=== PATIENT | female | born 1945 | race Caucasian/White ===

== ENCOUNTER → 2016-06-15 | Outpatient (CLI) | payer MEDICARE, OTHER ==
[2016-06-15 08:45] LABS: CHOLESTEROL 224.35 mg/dL (0-200); Direct HDL 89 mg/dL (>40); TRIGLYCERIDES 124 mg/dL (<150)
[2016-06-15 08:56] LABS: DIRECT LDL 110 mg/dL (<100)
== END ==
LOC: OD 07:30
PROVIDERS: ATTEND Internal Medicine
DX: E78.5 Hyperlipidemia, unspecified (principal); E55.9 Vitamin D deficiency, unspecified; E03.9 Hypothyroidism, unspecified
CPT/HCPCS: 36415; 80061; 82306; 84443

== ENCOUNTER 2016-07-05 06:59 | Day surgery (SDC) | payer MEDICARE, OTHER ==
[2016-07-05] MEDS ORDERED: MIDAZOLAM 2 MG/2 ML INJ ONE (07:22)
[2016-07-05] MEDS ORDERED: NALOXONE HCL INJ/PF 0.4 MG/1 ML SDV ONE (07:22)
[2016-07-05] MEDS ORDERED: PROMETHAZINE HCL INJ 25 MG/1 ML VIAL ONE (07:22)
[2016-07-05] MEDS ORDERED: ONDANSETRON HCL INJ/PF 4 MG/2 ML SDV ONE (07:22)
[2016-07-05] MEDS ORDERED: GLYCOPYRROLATE INJ 0.4 MG/2 ML VIAL ONE (07:22)
[2016-07-05] MEDS ORDERED: EPINEPHRINE INJ 1 MG/10 ML DISP.SYRIN ONE (07:23)
[2016-07-05] MEDS ORDERED: FENTANYL CITRATE INJ/PF 100 MCG/2 ML AMPUL ONE (07:23)
[2016-07-05] MEDS ORDERED: GLUCAGON,HUMAN RECOMB 1 MG INJ ONE (07:23)
[2016-07-05] MEDS ORDERED: FLUMAZENIL INJ 0.5 MG/5 ML VIAL IV ONE (07:23)
[2016-07-05] MEDS: MIDAZOLAM 2 MG/2 ML INJ ONE ×2 (07:42→07:52)
--- NOTE | 2016-07-05 08:19 | Operative Report ---
Operative Report DATE OF SURGERY: 07/05/16 PREOPERATIVE DIAGNOSIS: 1. External hemorrhoids. 2. Difficulty evacuating stool POSTOPERATIVE DIAGNOSIS: Same with 2 polyps one in transverse colon, one in descending colon OPERATION: Total colonoscopy to cecum. Polypectomy at 65 and 55 cm from anal verge SURGEON: PAULA POWER ANESTHESIA: Moderate Sedation TISSUE REMOVED OR ALTERED: 2 polyps COMPLICATIONS: none ESTIMATED BLOOD LOSS: none INTRAOPERATIVE FINDINGS: See below PROCEDURE: Obtaining informed consent the patient was taken from the preoperative holding area to the main endoscopy suite where monitoring devices were attached to the patient. Plan and surgical timeout were conducted The patient was placed in the left lateral decubitus position with knees to chest. A perianal examination was performed. There there were collapsed external hemorrhoids. Internally no hemorrhoids identified. Sphincter tone was felt to be normal. I did not Did not detect any significant prolapse, perineal descent etc. over the exam was limited due to the patient's level of sedation and her inability to The flexible adult colonoscope was advanced through the anal rectal canal, all the way to the cecum. Utilization of the cecum was achieved and the ileocecal valve, the appendiceal orifice and transillumination of the anterior abdominal wall. This was an excellent study on the well-prepped bowel. The colonoscope was withdrawn slowly and methodically checked and the mucosa carefully. There was no evidence of tumor, stricture, bleeding. 2 small polyps, likely less than 3 mm were identified 1 in the transverse colon approximately 70 cm from the anal verge and a second at 55 cm from anal verge. Both polyps were removed using the cold forceps device. The polyps removed in a piecemeal fashion. Bleeding was negligible. In the sigmoid colon one diverticulum was identified. The scope was slowly withdrawn through the anal rectal canal. Complete visualization of the rectum was achieved with photodocumentation. The scope was withdrawn to the patient's anus. The patient tolerated the procedure well and was taken to the recovery area in stable condition. Per surveillance guidelines, she'll be an appropriate candidate for follow colonoscopy in 3 years, or sooner if symptoms develop.
--- NOTE | 2016-07-05 08:20 | PDOC DISCHARGE SUMMARY ---
Discharge Summary (SDC) - Discharge Final Diagnosis: 1. External hemorrhoids 2. Difficulty evacuating stool 3. Colonic polyps Date of Surgery: 07/05/16 Discharge Date: 07/05/16 Condition: Good Treatment or Instructions: [facility] [address] [address] POST ENDOSCOPY DISCHARGE INSTRUCTIONS 1. Diet: Start clear liquids that a regular diet as tolerated. 2. Resume all preoperative medications. All oral anticoagulations and aspirins can be resumed 24 hours after procedure. 3. If a polypectomy was performed some bleeding per rectum may occur. This should stop within 3 days. If not, please contact the office. 4. If you had a colonoscopy you may experience some bloating and delayed return of normal bowel function for several days, your regular bowel movement pattern should resume within a week. 5. Please contact [facility] at to make an appointment with Dr Bertrand for 1 to 3 weeks following procedure. 6. If you have any questions or concerns regarding your care,treatment plan or follow up, please contact our office. 7. Per clinical guidelines we recommend you undergo a repeat colonscopy in 3 years. Discharge Diet: As Tolerated Discharge Activity: Activity As Tolerated Home Care Assistance: None Needed Report the Following to Your Physician Immediately: Shortness of Breath, Increase in Pain, Fever over 101 Degrees - Patient to follow up with Dr. Bertrand also surgical clinic in 2 weeks, resume preoperative medications diet and activity.
[2016-07-05 09:17] VITALS: BP 143/84
== END 2016-07-05 09:15 | disposition home or self-care (01) ==
LOC: END 06:59
PROVIDERS: ATTEND Surgery
PROC: 0DBE8ZX Excision of Large Intestine, Via Natural or Artificial Opening Endoscopic, Diagnostic (ICD-10-PCS; 2016-07-05)
PROC: 0DBL8ZX Excision of Transverse Colon, Via Natural or Artificial Opening Endoscopic, Diagnostic (ICD-10-PCS; principal; 2016-07-05 08:15)
DX: D12.4 Benign neoplasm of descending colon (principal); D12.3 Benign neoplasm of transverse colon; K57.30 Diverticulosis of large intestine without perforation or abscess without bleeding; K64.8 Other hemorrhoids; Z80.0 Family history of malignant neoplasm of digestive organs; J45.909 Unspecified asthma, uncomplicated; G43.909 Migraine, unspecified, not intractable, without status migrainosus; F32.9 Major depressive disorder, single episode, unspecified; E03.9 Hypothyroidism, unspecified; Z79.899 Other long term (current) drug therapy; Z79.51 Long term (current) use of inhaled steroids; E66.9 Obesity, unspecified; Z68.42 Body mass index [BMI] 45.0-49.9, adult
CPT/HCPCS: 45380; 88305 ×2; J2250; J3010; J0171; J1610; J2310; J2405; J2550; J3490

== ENCOUNTER → 2016-09-25 | Outpatient (CLI) | payer MEDICARE, OTHER | LOC: WI 08:27 | PROVIDERS: ATTEND Family Medicine Geriatric Medicine | DX: Z12.31 Encounter for screening mammogram for malignant neoplasm of breast (principal) | CPT/HCPCS: 77067; G0202 ==

== ENCOUNTER → 2016-11-27 | Outpatient (CLI) | payer MEDICARE, OTHER ==
[2016-11-27 08:15] LABS: ABSOLUTE EOSINOPHILS # (AUTO) 0.1 10^3/uL (0.0-0.6); ABSOLUTE LYMPHOCYTES (AUTO) 1.1 10^3/uL (0.5-4.7); ABSOLUTE MONOCYTES (AUTO) 0.4 10^3/uL (0.1-1.4); ABSOLUTE NEUT (AUTO) 3.1 10^3/uL (1.7-8.2); BASOPHILS % (AUTO) 0.9 % (0-2); EOSINOPHILS % (AUTO) 2.4 % (0-6); HEMATOCRIT 35.5 % (36.0-47.0); HEMOGLOBIN 11.4 g/dL (12.0-15.5); HGB HCT DIFFERENCE -1.3; LYMPHOCYTES % (AUTO) 23.5 % (13-45); MEAN CORPUSCULAR HEMOGLOBIN 29.9 pg (27.0-33.4); MEAN CORPUSCULAR HGB CONC 32.2 g/dL (32.0-36.0); MEAN CORPUSCULAR VOLUME 93 fl (80-97); MONOCYTES % (AUTO) 9.3 % (3-13); RED BLOOD COUNT 3.83 10^6/uL (3.72-5.28); RED CELL DISTRIBUTION WIDTH 14.9 % (11.5-14.0); SEGMENTED NEUTROPHILS % (AUTO) 63.9 % (42-78); WHITE BLOOD COUNT 4.8 10^3/uL (4.0-10.5)
[2016-11-27 08:40] LABS: ALANINE AMINOTRANSFERASE 24 U/L (9-52); ALBUMIN 3.7 g/dL (3.5-5.0); ALKALINE PHOSPHATASE 98 U/L (38-126); ANION GAP 10 (5-19); ASPARTATE AMINO TRANSFERASE 19 U/L (14-36); BILIRUBIN,DIRECT 0.3 mg/dL (0.0-0.4); BILIRUBIN,TOTAL 0.3 mg/dL (0.2-1.3); BLOOD UREA NITROGEN 18 mg/dL (7-20); CALCIUM 9.3 mg/dL (8.4-10.2); CARBON DIOXIDE 24 mmol/L (22-30); CHLORIDE 109 mmol/L (98-107); CHOLESTEROL 254.98 mg/dL (0-200); CREATININE RESULT 1.01 mg/dL (0.52-1.25); Direct HDL 78 mg/dL (>40); GLUCOSE 99 mg/dL (75-110); POTASSIUM 4.2 mmol/L (3.6-5.0); SODIUM 143.3 mmol/L (137-145); TOTAL PROTEIN 6.8 g/dL (6.3-8.2); TRIGLYCERIDES 128 mg/dL (<150)
[2016-11-27 08:51] LABS: DIRECT LDL 135 mg/dL (<100)
== END ==
LOC: OD 07:02
PROVIDERS: ATTEND Psychiatry & Neurology Psychiatry
DX: F33.0 Major depressive disorder, recurrent, mild (principal)
CPT/HCPCS: 36415; 80053; 80061; 84443; 85025

== ENCOUNTER → 2017-01-17 | Outpatient (CLI) | payer MEDICARE, OTHER ==
[2017-01-17 08:13] LABS: ABSOLUTE EOSINOPHILS # (AUTO) 0.2 10^3/uL (0.0-0.6); ABSOLUTE LYMPHOCYTES (AUTO) 1.5 10^3/uL (0.5-4.7); ABSOLUTE MONOCYTES (AUTO) 0.6 10^3/uL (0.1-1.4); ABSOLUTE NEUT (AUTO) 4.1 10^3/uL (1.7-8.2); BASOPHILS % (AUTO) 0.7 % (0-2); EOSINOPHILS % (AUTO) 2.8 % (0-6); HEMATOCRIT 34.8 % (36.0-47.0); HEMOGLOBIN 11.5 g/dL (12.0-15.5); HGB HCT DIFFERENCE -0.3; LYMPHOCYTES % (AUTO) 22.9 % (13-45); MEAN CORPUSCULAR HEMOGLOBIN 30.9 pg (27.0-33.4); MEAN CORPUSCULAR HGB CONC 33.1 g/dL (32.0-36.0); MEAN CORPUSCULAR VOLUME 93 fl (80-97); MONOCYTES % (AUTO) 8.8 % (3-13); RED BLOOD COUNT 3.73 10^6/uL (3.72-5.28); RED CELL DISTRIBUTION WIDTH 14.7 % (11.5-14.0); SEGMENTED NEUTROPHILS % (AUTO) 64.8 % (42-78); WHITE BLOOD COUNT 6.4 10^3/uL (4.0-10.5)
[2017-01-17 08:39] LABS: ALANINE AMINOTRANSFERASE 24 U/L (9-52); ALBUMIN 3.9 g/dL (3.5-5.0); ALKALINE PHOSPHATASE 101 U/L (38-126); ANION GAP 10 (5-19); ASPARTATE AMINO TRANSFERASE 18 U/L (14-36); BILIRUBIN,DIRECT 0.4 mg/dL (0.0-0.4); BILIRUBIN,TOTAL 0.4 mg/dL (0.2-1.3); BLOOD UREA NITROGEN 18 mg/dL (7-20); CALCIUM 9.5 mg/dL (8.4-10.2); CARBON DIOXIDE 25 mmol/L (22-30); CHLORIDE 110 mmol/L (98-107); CHOLESTEROL 255.45 mg/dL (0-200); CREATININE RESULT 0.99 mg/dL (0.52-1.25); Direct HDL 86 mg/dL (>40); GLUCOSE 98 mg/dL (75-110); POTASSIUM 4.2 mmol/L (3.6-5.0); SODIUM 144.6 mmol/L (137-145); TOTAL PROTEIN 6.9 g/dL (6.3-8.2); TRIGLYCERIDES 108 mg/dL (<150)
[2017-01-17 08:51] LABS: DIRECT LDL 137 mg/dL (<100)
== END ==
LOC: OD 07:06
PROVIDERS: ATTEND Family Medicine Geriatric Medicine
DX: E78.5 Hyperlipidemia, unspecified (principal); E03.9 Hypothyroidism, unspecified; Z79.899 Other long term (current) drug therapy
CPT/HCPCS: 36415; 80053; 80061; 84443; 85025

== ENCOUNTER → 2017-04-19 | Outpatient (CLI) | payer MEDICARE, OTHER ==
[2017-04-19 08:55] LABS: ANION GAP 14 (5-19); BLOOD UREA NITROGEN 14 mg/dL (7-20); CALCIUM 9.2 mg/dL (8.4-10.2); CARBON DIOXIDE 23 mmol/L (22-30); CHLORIDE 109 mmol/L (98-107); CREATININE RESULT 1.02 mg/dL (0.52-1.25); GLUCOSE 83 mg/dL (75-110); POTASSIUM 4.1 mmol/L (3.6-5.0); SODIUM 145.7 mmol/L (137-145)
== END ==
LOC: OD 07:25
PROVIDERS: ATTEND Family Medicine Geriatric Medicine
DX: D64.9 Anemia, unspecified (principal); N18.3 Chronic kidney disease, stage 3 (moderate); Z79.899 Other long term (current) drug therapy
CPT/HCPCS: 36415; 80048; 82728; 83540; 83550; 84466; 85045

== ENCOUNTER → 2017-08-16 | Outpatient (CLI) | payer MEDICARE, OTHER ==
[2017-08-16 08:04] LABS: ABSOLUTE EOSINOPHILS # (AUTO) 0.2 10^3/uL (0.0-0.6); ABSOLUTE LYMPHOCYTES (AUTO) 1.5 10^3/uL (0.5-4.7); ABSOLUTE MONOCYTES (AUTO) 0.6 10^3/uL (0.1-1.4); BASOPHILS % (AUTO) 0.7 % (0-2); EOSINOPHILS % (AUTO) 3.3 % (0-6); HEMATOCRIT 34.1 % (36.0-47.0); HEMOGLOBIN 11.3 g/dL (12.0-15.5); LYMPHOCYTES % (AUTO) 23.3 % (13-45); MEAN CORPUSCULAR HEMOGLOBIN 30.8 pg (27.0-33.4); MEAN CORPUSCULAR VOLUME 94 fl (80-97); MONOCYTES % (AUTO) 9.6 % (3-13); PLATELET COUNT 223 10^3/uL (150-450); RED BLOOD COUNT 3.65 10^6/uL (3.72-5.28); RED CELL DISTRIBUTION WIDTH 13.8 % (11.5-14.0); SEGMENTED NEUTROPHILS % (AUTO) 63.1 % (42-78); TOTAL CELLS COUNTED % (AUTO) 100 %; WHITE BLOOD COUNT 6.4 10^3/uL (4.0-10.5)
[2017-08-16 08:21] LABS: ALANINE AMINOTRANSFERASE 29 U/L (9-52); ALBUMIN 3.9 g/dL (3.5-5.0); ALKALINE PHOSPHATASE 73 U/L (38-126); ASPARTATE AMINO TRANSFERASE 16 U/L (14-36); BILIRUBIN,DIRECT 0.2 mg/dL (0.0-0.4); BILIRUBIN,TOTAL 0.2 mg/dL (0.2-1.3); CHOLESTEROL 180.75 mg/dL (0-200); TRIGLYCERIDES 71 mg/dL (<150)
[2017-08-16 08:32] LABS: DIRECT LDL 71 mg/dL (<100)
== END ==
LOC: OD 07:17
PROVIDERS: ATTEND Family Medicine Geriatric Medicine
DX: I10 Essential (primary) hypertension (principal); E78.5 Hyperlipidemia, unspecified; D64.9 Anemia, unspecified; E03.9 Hypothyroidism, unspecified; Z79.899 Other long term (current) drug therapy
CPT/HCPCS: 36415; 80061; 80076; 84443; 85025

== ENCOUNTER 2017-08-23 18:17 | Emergency (ER) | payer MEDICARE, OTHER ==
[2017-08-23] MEDS ORDERED: PROCHLORPERAZINE EDISYLATE INJ 10 MG/2 ML VIAL IM ONE (19:20)
[2017-08-23] MEDS ORDERED: DIPHENHYDRAMINE HCL 50 MG/ML VIAL IV ONE (19:20)
--- NOTE | 2017-08-23 19:25 | ER Document Report ---
HPI - HPI Pain Level: 4 Notes: Patient is a 72-year-old female with a history of mental health disorder, migraine, COPD, hypercholesterolemia, thyroid issues who presents to the ED complaining of left temporal headache that has been constant over the last 3 days. Patient states that this is not a typical migraine pain for her. She does take tramadol and Imitrex which usually helps with her headaches, but this time it has not. She states that the pain does not radiate. She has not had any jaw claudication. She is eating and drinking otherwise without difficulties. She is urinating normally having normal bowel movements. Patient states that she does have seasonal allergies, but has not had any sinus pressure or postnasal drip. Patient denies any smoking or IV drug use. Patient does have a neurologist Dr. Monet who she sees for her migraines. No other concerns or complaints at this time. Denies any fever, head injury, neck pain, changes in vision/speech/mentation/hearing, URI, sore throat, chest pain, palpitations, syncope, cough, shortness of breath, wheeze, dyspnea, abdominal pain, nausea/vomiting/diarrhea, urinary retention, dysuria, hematuria , loss of control of bowel or bladder, numbness/tingling, saddle anesthesia, muscle paralysis/weakness, or rash. - ROS Systems Reviewed and Negative: Yes All other systems reviewed and negative Past Medical History - Social History Smoking Status: Never Smoker Family History: Reviewed & Not Pertinent - Past Medical History Cardiac Medical History: Reports: Hx Coronary Artery Disease, Hx Hypercholesterolemia Denies: Hx Heart Attack, Hx Hypertension Pulmonary Medical History: Reports: Hx Asthma, Hx COPD Denies: Hx Bronchitis, Hx Pneumonia Neurological Medical History: Denies: Hx Cerebrovascular Accident, Hx Seizures GI Medical History: Denies: Hx Hepatitis, Hx Hiatal Hernia, Hx Ulcer Musculoskeltal Medical History: Reports Hx Arthritis - B/L KNEES? Infectious Medical History: Denies: Hx Hepatitis Past Surgical History: Reports: Hx Abdominal Surgery - Gallbladder Removed, Hx Gynecologic Surgery - 2 C-sections, Hx Hysterectomy, Hx Oral Surgery - tonsilectomy. Denies: Hx Mastectomy, Hx Open Heart Surgery, Hx Pacemaker - Immunizations Hx Diphtheria, Pertussis, Tetanus Vaccination: Yes Hx Pneumococcal Vaccination: 03/03/16 Vertical Provider Document - CONSTITUTIONAL Agree With Documented VS: Yes Notes: PHYSICAL EXAMINATION: GENERAL: Well-appearing, well-nourished and in no acute distress. A&Ox4. Answers questions appropriately. HEAD: Atraumatic, normocephalic. Non-tender. EYES: Pupils equal round and reactive to light, extraocular movements intact, sclera anicteric, conjunctiva are normal. vis hardwick intact ENT: EAC clear b/l. TM's intact b/l without erythema, fluid, or perforation. Nares patent and without discharge. oropharynx clear without exudates. No tonsilar hypertrophy or erythema. Moist mucous membranes. No sinus tenderness. Palp of the temporal artery with 1+ pulse b/l, non-tender. NECK: Normal range of motion, supple without lymphadenopathy. No rigidity. No midline tenderness. Spurling negative. LUNGS: Breath sounds clear to auscultation bilaterally and equal. No wheezes rales or rhonchi. HEART: Regular rate and rhythm without murmurs, rubs, gallops. Musculoskeletal: Ext b/l: FROM to passive/active. Strength 5+/5. No deficits noted. No bony tenderness of extremities. Extremities: No cyanosis, clubbing, or edema b/l. Peripheral pulses 2+. Capillary refill less than 2 seconds. NEUROLOGICAL: NIH 0. GCS 15. cranial nerves grossly intact. Normal speech, normal gait. Normal sensory, motor exams. Reflexes 2+ b/l. BINA's negative. Pronator drift negative. PSYCH: Normal mood, normal affect. SKIN: Warm, Dry, normal turgor, no rashes or lesions noted. - INFECTION CONTROL TRAVEL OUTSIDE OF THE [place] IN LAST 30 DAYS: No Course - Re-evaluation Re-evalutation: 08/23/17 19:[address] Howell. We will obtain a head CT and give compazine/benadryl. We will give toradol with neg CT. 08/23/17 20:45 Patient is an afebrile, well-hydrated, 72-year-old female who presents to the ED with a left temporal headache, suspect benign at this time. Vitals are acceptable. PE is otherwise unremarkable for any focal neurological deficits. CT scan of the head was unremarkable for any acute pathology. NIH 0, GCS 15, cranial nerves grossly intact. No other labs or imaging warranted at this time based on H&P. Patient was given Benadryl, Compazine, and Toradol (toradol once CT neg) for her headache which resolved her symptoms. Low suspicion for any acute glaucoma, temporal arteritis, meningitis, intracranial hemorrhage, ischemic stroke, or fracture at this time. Patient is aware that her condition can change from initial presentation and that she needs to monitor symptoms closely for any acute changes. Conservative measures for symptoms. Continue at home medications as needed/directed. Recheck with your PCM/neurologist next week. Return to the ED with any worsening/concerning symptoms otherwise as reviewed discharge. Patient is in agreement. - Vital Signs Vital signs: Temp Pulse Resp BP Pulse Ox 98.3 F 78 20 151/92 H 98 08/23/17 18:51 08/23/17 18:51 08/23/17 18:51 08/23/17 18:51 08/23/17 18:51 Discharge - Discharge Clinical Impression: Headache Qualifiers: Headache type: unspecified Headache chronicity pattern: acute headache Intractability: not intractable Qualified Code(s): R51 - Headache Condition: Stable Disposition: HOME, SELF-CARE Instructions: Headache ([facility]) Additional Instructions: Rest, cool compress Tylenol/ibuprofen as needed Light stretches daily Strength exercises as able Moist heat and massage may help F/u with your PCP in 3-5 days for a recheck Consider consult(s) with Neurology for ongoing/worsening symptoms Return to the ED with any worsening symptoms and/or development of fever, worsening headache, changes in behavior/mentation/speech/vision, chest pain, palpitations, syncope, shortness of breath, trouble breathing, abdominal pain, n /v/d, blood in stool/urine, loss of control of bowel/bladder, urinary retention , muscle weakness/paralysis, saddle anesthesia, numbness/tingling, or other worsening symptoms that are concerning to you. Referrals: JULIA MILLIGAN MD [Primary Care Provider] - Follow up in 3-5 days KRISTEN MONET MD [EMERITUS] - Follow up as needed
[2017-08-23] MEDS ORDERED: PROCHLORPERAZINE EDISYLATE INJ 10 MG/2 ML VIAL IV ONE (19:32)
--- NOTE | 2017-08-23 19:48 | RADIOLOGY REPORT (SQ) ---
EXAM DESCRIPTION: CT HEAD WITHOUT COMPLETED DATE/TIME: 08/23/2017 7:37 pm REASON FOR STUDY: left temporal BURKS COMPARISON: MRI from 04/21/2010 TECHNIQUE: Axial images acquired through the brain without intravenous contrast. Images reviewed wi th bone, brain and subdural windows. Images stored on PACS. All CT scanners at this facility use dose modulation, iterative reconstruction, and/or weight based d osing when appropriate to reduce radiation dose to as low as reasonably achievable (ALARA). [facility]: Dose Right [facility]: CareDose [facility]: Dose Right [facility]: Teradose 4D [facility]: Smart Imaxio RADIATION DOSE: CT Rad equipment meets quality standard of care and radiation dose reduction techniq ues were employed. CTDIvol: 64.6 mGy. DLP: 1163 mGy-cm. mGy. LIMITATIONS: None. FINDINGS: VENTRICLES: Prominent. CEREBRUM: No masses. No hemorrhage. No midline shift. Areas of low density in the white matter mos t likely due to chronic micro-vascular ischemic change. No evidence for acute infarction. CEREBELLUM: No masses. No hemorrhage. No alteration of density. No evidence for acute infarction. EXTRAAXIAL SPACES: Mild age-related involutional change. No fluid collections. No masses. ORBITS AND GLOBE: No intra- or extraconal masses. Normal contour of globe without masses. CALVARIUM: No fracture. PARANASAL SINUSES: No fluid or mucosal thickening. SOFT TISSUES: No mass or hematoma. OTHER: No other significant finding. IMPRESSION: MILD CHRONIC CHANGES OF ATROPHY AND MICROVASCULAR ISCHEMIA. NO ACUTE PROCESS. EVIDENCE OF ACUTE STROKE: NO. TECHNICAL DOCUMENTATION: JOB ID: [id number] Quality ID # [id number]: Final reports with documentation of one or more dose reduction techniques (e.g., Au tomated exposure control, adjustment of the mA and/or kV according to patient size, use of iterative reconstruction technique) 2010 [employer]- All Rights Reserved Reading location - IP/workstation name: [email or web address]
[2017-08-23] MEDS ORDERED: KETOROLAC TROMETHAMINE INJ/PF 30 MG/1 ML SDV IV ONE (19:59)
[2017-08-23 21:02] VITALS: BP 114/63
== END 2017-08-23 21:02 | disposition home or self-care (01) ==
LOC: ER 18:17
DX: R51 Headache (principal); J44.9 Chronic obstructive pulmonary disease, unspecified; E78.00 Pure hypercholesterolemia, unspecified; I25.10 Atherosclerotic heart disease of native coronary artery without angina pectoris; Z90.710 Acquired absence of both cervix and uterus
CPT/HCPCS: 99284; 96374; 96375; 70450; J1200; J1885; J0780

== ENCOUNTER → 2017-09-26 | Outpatient (CLI) | payer MEDICARE, OTHER ==
--- NOTE | 2017-09-26 08:53 | WOMENS IMAGING REPORT ---
EXAM DESCRIPTION: BILAT SCREENING MAMMO W/CAD COMPLETED DATE/TIME: 09/26/2017 8:16 am REASON FOR STUDY: SCREENING MAMMO Z12.31 ENCNTR SCREEN MAMMOGRAM FOR MALIGNANT NEOPLASM OF EVELNY COMPARISON: 09/25/2016 and 08/24/2015. TECHNIQUE: Standard craniocaudal and mediolateral oblique views of each breast recorded using RV IDa l acquisition. LIMITATIONS: None. FINDINGS: No masses, calcifications or architectural distortion. No areas of suspicion. Read with the assistance of CAD. .[facility] - R2 Cenova Version 1.3 .[facility] Imaging - R2 Cenova Version 1.3 .[facility] Imaging - R2 Cenova Version 2.4 .[facility] - R2 Cenova Version 2.4 .[facility] - R2 Clerical Production Worker Version 9.2 IMPRESSION: NORMAL MAMMOGRAM. BIRADS 1. BREAST DENSITY: a. The breasts are almost entirely fatty. BIRAD: 1 NEGATIVE RECOMMENDATION: ROUTINE SCREENING COMMENT: The patient has been notified of the results by letter per SA requirements. Additional no tification policies are in place for contacting patient with suspicious or incomplete findings. Quality ID #[id number]: The [employer] recommends an annual screening mammogram for women aged 40 years or over. This facility utilizes a reminder system to ensure that all patients receive reminder letters, and/or direct phone calls for appointments. This includes reminders for routine scr eening mammograms, diagnostic mammograms, or other Breast Imaging Interventions when appropriate. Th is patient will be placed in the appropriate reminder system. The [employer] (ACR) has developed recommendations for screening MRI of the breast s in certain patient populations, to be used in conjunction with mammography. Breast MRI surveillanc e may be appropriate for women with more than 20% lifetime risk of developing breast cancer as deter mined by genetic testing, significant family history of the disease, or history of mantle radiation f or Hodgkins Disease. ACR Practice Guidelines 2008. TECHNICAL DOCUMENTATION: FINDING NUMBER: (1) ASSESSMENT: (1) JOB ID: [id number] [employer]- All Rights Reserved Reading location - IP/workstation name: [email or web address]
== END ==
LOC: WI 07:31
PROVIDERS: ATTEND Family Medicine Geriatric Medicine
DX: Z12.31 Encounter for screening mammogram for malignant neoplasm of breast (principal)
CPT/HCPCS: 77067

== ENCOUNTER → 2017-12-12 | Outpatient (CLI) | payer MEDICARE, OTHER ==
[2017-12-12 11:50] LABS: ABSOLUTE EOSINOPHILS # (AUTO) 0.2 10^3/uL (0.0-0.6); ABSOLUTE LYMPHOCYTES (AUTO) 1.5 10^3/uL (0.5-4.7); ABSOLUTE MONOCYTES (AUTO) 0.8 10^3/uL (0.1-1.4); ABSOLUTE NEUT (AUTO) 3.8 10^3/uL (1.7-8.2); BASOPHILS % (AUTO) 0.7 % (0-2); EOSINOPHILS % (AUTO) 3.1 % (0-6); HEMATOCRIT 33.1 % (36.0-47.0); HEMOGLOBIN 11.1 g/dL (12.0-15.5); LYMPHOCYTES % (AUTO) 23.1 % (13-45); MEAN CORPUSCULAR HEMOGLOBIN 30.9 pg (27.0-33.4); MEAN CORPUSCULAR HGB CONC 33.5 g/dL (32.0-36.0); MEAN CORPUSCULAR VOLUME 92 fl (80-97); MONOCYTES % (AUTO) 12.4 % (3-13); PLATELET COUNT 191 10^3/uL (150-450); RED BLOOD COUNT 3.59 10^6/uL (3.72-5.28); RED CELL DISTRIBUTION WIDTH 14.2 % (11.5-14.0); SEGMENTED NEUTROPHILS % (AUTO) 60.7 % (42-78); TOTAL CELLS COUNTED % (AUTO) 100 %; WHITE BLOOD COUNT 6.3 10^3/uL (4.0-10.5)
[2017-12-12 11:53] LABS: ABSOLUTE EOSINOPHILS # (AUTO) 0.2 10^3/uL (0.0-0.6); ABSOLUTE LYMPHOCYTES (AUTO) 1.5 10^3/uL (0.5-4.7); ABSOLUTE MONOCYTES (AUTO) 0.8 10^3/uL (0.1-1.4); ABSOLUTE NEUT (AUTO) 3.8 10^3/uL (1.7-8.2); BASOPHILS % (AUTO) 0.7 % (0-2); EOSINOPHILS % (AUTO) 3.1 % (0-6); HEMATOCRIT 33.1 % (36.0-47.0); HEMOGLOBIN 11.1 g/dL (12.0-15.5); LYMPHOCYTES % (AUTO) 23.1 % (13-45); MEAN CORPUSCULAR HEMOGLOBIN 30.9 pg (27.0-33.4); MEAN CORPUSCULAR HGB CONC 33.5 g/dL (32.0-36.0); MEAN CORPUSCULAR VOLUME 92 fl (80-97); MONOCYTES % (AUTO) 12.4 % (3-13); PLATELET COUNT 191 10^3/uL (150-450); RED BLOOD COUNT 3.59 10^6/uL (3.72-5.28); RED CELL DISTRIBUTION WIDTH 14.2 % (11.5-14.0); SEGMENTED NEUTROPHILS % (AUTO) 60.7 % (42-78); TOTAL CELLS COUNTED % (AUTO) 100 %; WHITE BLOOD COUNT 6.3 10^3/uL (4.0-10.5)
[2017-12-12 12:28] LABS: ALANINE AMINOTRANSFERASE 26 U/L (9-52); ALBUMIN 3.9 g/dL (3.5-5.0); ALKALINE PHOSPHATASE 66 U/L (38-126); ANION GAP 11 (5-19); ASPARTATE AMINO TRANSFERASE 25 U/L (14-36); BILIRUBIN,DIRECT 0.3 mg/dL (0.0-0.4); BILIRUBIN,TOTAL 0.3 mg/dL (0.2-1.3); BLOOD UREA NITROGEN 17 mg/dL (7-20); CARBON DIOXIDE 25 mmol/L (22-30); CHLORIDE 109 mmol/L (98-107); GLUCOSE 76 mg/dL (75-110); POTASSIUM 4.4 mmol/L (3.6-5.0); SODIUM 144.9 mmol/L (137-145); TOTAL PROTEIN 6.6 g/dL (6.3-8.2)
[2017-12-12 12:49] LABS: ANION GAP 11 (5-19); BLOOD UREA NITROGEN 17 mg/dL (7-20); CARBON DIOXIDE 25 mmol/L (22-30); CHLORIDE 109 mmol/L (98-107); GLUCOSE 76 mg/dL (75-110); POTASSIUM 4.4 mmol/L (3.6-5.0); SODIUM 144.9 mmol/L (137-145)
== END ==
LOC: OD 10:26
PROVIDERS: ATTEND Family Medicine Geriatric Medicine
DX: I10 Essential (primary) hypertension (principal); F33.0 Major depressive disorder, recurrent, mild; Z79.899 Other long term (current) drug therapy
CPT/HCPCS: 36415; 80048; 80053; 84443; 85025

== ENCOUNTER → 2018-04-17 | Outpatient (CLI) | payer MEDICARE, OTHER ==
[2018-04-17 11:38] LABS: ABSOLUTE EOSINOPHILS # (AUTO) 0.1 10^3/uL (0.0-0.6); ABSOLUTE LYMPHOCYTES (AUTO) 1.5 10^3/uL (0.5-4.7); ABSOLUTE MONOCYTES (AUTO) 0.6 10^3/uL (0.1-1.4); ABSOLUTE NEUT (AUTO) 3.4 10^3/uL (1.7-8.2); BASOPHILS % (AUTO) 0.8 % (0-2); EOSINOPHILS % (AUTO) 1.5 % (0-6); HEMATOCRIT 34.5 % (36.0-47.0); HEMOGLOBIN 11.6 g/dL (12.0-15.5); MEAN CORPUSCULAR HEMOGLOBIN 31.4 pg (27.0-33.4); MEAN CORPUSCULAR HGB CONC 33.5 g/dL (32.0-36.0); MEAN CORPUSCULAR VOLUME 94 fl (80-97); MONOCYTES % (AUTO) 11.3 % (3-13); PLATELET COUNT 190 10^3/uL (150-450); RED BLOOD COUNT 3.68 10^6/uL (3.72-5.28); SEGMENTED NEUTROPHILS % (AUTO) 60.4 % (42-78); TOTAL CELLS COUNTED % (AUTO) 100 %; WHITE BLOOD COUNT 5.7 10^3/uL (4.0-10.5)
[2018-04-17 11:57] LABS: APPEARANCE,URINE SLIGHTLY-CLOUDY; BILIRUBIN,URINE NEGATIVE (NEGATIVE); COLOR,URINE STRAW; GLUCOSE, URINE NEGATIVE (NEGATIVE); KETONES,URINE NEGATIVE (NEGATIVE); LEUKOCYTE ESTERASE,URINE MODERATE (NEGATIVE); NITRITE,URINE NEGATIVE (NEGATIVE); PROTEIN,URINE NEGATIVE (NEGATIVE); URINE SPECIFIC GRAVITY 1.004; UROBILINOGEN,URINE NEGATIVE mg/dL (<2.0)
[2018-04-17 12:03] LABS: ANION GAP 13 (5-19); BLOOD UREA NITROGEN 18 mg/dL (7-20); CALCIUM 9.3 mg/dL (8.4-10.2); CARBON DIOXIDE 21 mmol/L (22-30); CHLORIDE 109 mmol/L (98-107); GLUCOSE 72 mg/dL (75-110); POTASSIUM 4.4 mmol/L (3.6-5.0); SODIUM 142.5 mmol/L (137-145)
--- NOTE | 2018-04-17 13:43 | RADIOLOGY REPORT (SQ) ---
EXAM DESCRIPTION: CHEST PA/LATERAL COMPLETED DATE/TIME: 04/17/2018 11:17 am REASON FOR STUDY: PRE-OP COMPARISON: 01/26/2016 EXAM PARAMETERS: NUMBER OF VIEWS: two views TECHNIQUE: Digital Frontal and Lateral radiographic views of the chest acquired. RADIATION DOSE: NA LIMITATIONS: none FINDINGS: LUNGS AND PLEURA: No opacities, masses or pneumothorax. No pleural effusion. MEDIASTINUM AND HILAR STRUCTURES: No masses or contour abnormalities. HEART AND VASCULAR STRUCTURES: Heart normal size. No evidence for failure. BONES: No acute findings. HARDWARE: None in the chest. OTHER: No other significant finding. IMPRESSION: NO SIGNIFICANT RADIOGRAPHIC FINDING IN THE CHEST. TECHNICAL DOCUMENTATION: JOB ID: [id number] [employer]- All Rights Reserved Reading location - IP/workstation name: [email or web address]
--- NOTE | 2018-04-18 10:41 | EKG REPORT ---
SEVERITY:- ABNORMAL ECG - SINUS RHYTHM PROBABLE LEFT VENTRICULAR HYPERTROPHY BORDERLINE T ABNORMALITIES, INFERIOR LEADS : Confirmed by: Mat Golden 18-Apr-2018 10:39:08
== END ==
LOC: OD 09:43
PROVIDERS: ATTEND Orthopaedic Surgery
DX: Z01.818 Encounter for other preprocedural examination (principal)
CPT/HCPCS: 36415; 71046; 80048; 81001; 85025; 93005; 93010

== ENCOUNTER → 2018-05-07 | Outpatient (CLI) | payer MEDICARE, OTHER ==
[2018-05-07 08:40] LABS: ABSOLUTE EOSINOPHILS # (AUTO) 0.1 10^3/uL (0.0-0.6); ABSOLUTE LYMPHOCYTES (AUTO) 1.4 10^3/uL (0.5-4.7); ABSOLUTE MONOCYTES (AUTO) 0.5 10^3/uL (0.1-1.4); ABSOLUTE NEUT (AUTO) 2.8 10^3/uL (1.7-8.2); BASOPHILS % (AUTO) 0.7 % (0-2); EOSINOPHILS % (AUTO) 1.9 % (0-6); HEMATOCRIT 34.4 % (36.0-47.0); HEMOGLOBIN 11.6 g/dL (12.0-15.5); LYMPHOCYTES % (AUTO) 28.6 % (13-45); MEAN CORPUSCULAR HEMOGLOBIN 31.5 pg (27.0-33.4); MEAN CORPUSCULAR HGB CONC 33.6 g/dL (32.0-36.0); MEAN CORPUSCULAR VOLUME 94 fl (80-97); MONOCYTES % (AUTO) 9.7 % (3-13); PLATELET COUNT 186 10^3/uL (150-450); RED BLOOD COUNT 3.67 10^6/uL (3.72-5.28); RED CELL DISTRIBUTION WIDTH 13.9 % (11.5-14.0); SEGMENTED NEUTROPHILS % (AUTO) 59.1 % (42-78); TOTAL CELLS COUNTED % (AUTO) 100 %; WHITE BLOOD COUNT 4.8 10^3/uL (4.0-10.5)
[2018-05-07 09:10] LABS: ALANINE AMINOTRANSFERASE 16 U/L (9-52); ANION GAP 10 (5-19); BLOOD UREA NITROGEN 17 mg/dL (7-20); CALCIUM 9.3 mg/dL (8.4-10.2); CARBON DIOXIDE 24 mmol/L (22-30); CHLORIDE 110 mmol/L (98-107); CHOLESTEROL 174.13 mg/dL (0-200); GLUCOSE 85 mg/dL (75-110); POTASSIUM 4.3 mmol/L (3.6-5.0); TRIGLYCERIDES 94 mg/dL (<150); URIC ACID 5.4 mg/dL (2.5-7.5)
[2018-05-07 09:22] LABS: DIRECT LDL 74 mg/dL (<100)
== END ==
LOC: OD 07:59
PROVIDERS: ATTEND Family Medicine Geriatric Medicine
DX: M17.0 Bilateral primary osteoarthritis of knee (principal); E03.9 Hypothyroidism, unspecified; N18.3 Chronic kidney disease, stage 3 (moderate); M25.569 Pain in unspecified knee
CPT/HCPCS: 36415; 80048; 80061; 82306; 84443; 84460; 84550; 85025

== ENCOUNTER → 2018-05-07 | Outpatient (CLI) | payer MEDICARE, OTHER ==
[~2018-05-07] MED LIST: REGADENOSON INJ 0.4 MG/5 ML DISP.SYRIN IV ONE
--- NOTE | 2018-05-08 21:01 | DRAGON STRESS TEST REPORT ---
Intravenous Lexiscan Cardiolite stress test using single photon emmision computerized tomography. Date of procedure: 05/07/2018.Ordering Provider: Dr. Fang Amin. Patient's status: Out Patient. Indication: Abnormal EKG for preoperative risk assessment.. Coronary risk factors: Age, and dyslipidemia Resting EKG: Sinus Rhythm. Diffuse nonspecific ST-T changes. Stress EKG: No changes of ischemia. The patient had no chest pain or discomfort, and there were no arrhythmias seen. Reason for termination: Protocol. Conclusions: Normal EKG and hemodynamic response to IV Lexiscan. Nuclear data: At rest the patient was given 14.89 millicuries of technetium 99m sestamibi injected intravenously. As per protocol rest non gated SPECT images were obtained. Subsequently the patient was given intravenous Lexiscan at a dose of 0.4 mg in 5 mL intravenously, followed by flush with normal saline. Subsequently the stress dose of 46.1 millicuries of technetium 99m sestamibi was injected intravenously. As per protocol stress gated images were obtained. Nuclear interpretation: Review of images showed that all segments of the myocardium had normal perfusion at rest, and normal perfusion post stress with IV Lexiscan. All segments of the myocardium had normal motion, contraction, and thickening by gated study. T. I D. ratio was normal at 0.97. There is no transient ischemic calcification of the left ventricle. Computer read rest, and stress left ventricular ejection fraction were 61 %, and 63 %, respectively. Conclusion: 1. There is no scintigraphic evidence of Lexiscan induced myocardial ischemia. 2. There is no scintigraphic evidence of myocardial infarction/scar. Recommendations: Aggressive risk factor modification, and treating the underlying co- morbidities. MTDD
== END ==
LOC: RAD 08:18
PROVIDERS: ATTEND Specialist
DX: R94.31 Abnormal electrocardiogram [ECG] [EKG] (principal); R78.5 Finding of other psychotropic drug in blood
CPT/HCPCS: 93017; 78452; A9500; J2785; Q9969

== ENCOUNTER → 2018-05-08 | Outpatient (CLI) | payer MEDICARE, OTHER ==
--- NOTE | 2018-05-08 20:31 | XCELERA REPORT ---
[address] [address] Transthoracic Echocardiogram Report Name: NILSA MCDUFFIE Age: 72 yrs Gender: Female : 1945 Patient Status: Outpatient Patient Location: Study Date: 05/08/2018 11:05 AM Procedure: A two-dimensional transthoracic echocardiogram with color flow and Doppler was performed. Study Quality: Technically suboptimal. Reason For Study: ABN EKG History: ABNORMAL EKG. Ordering Physician: FANG EL Performed By: Marge Ojeda Interpretation Summary The left ventricle is normal in size. There is normal left ventricular wall thickness. LV EF is > than 65% Left ventricular systolic function is normal. Doppler measurements suggest impaired left ventricular relaxation, which is associated with grade I/IV or mild diastolic dysfunction No defenite focal or regional wall motion abnormality. There is no thrombus. The right ventricle is not well visualized secondary to technical limitations Right atrium not well visualized secondary to technical limitations The left atrial size is normal. There is no evidence of mitral valve prolapse. There is no vegetation seen on the mitral valve. There is no mitral valve stenosis. There is no mitral regurgitation noted. There is no aortic valvular vegetation. There is no aortic valve stenosis There is no LVOT obstruction. No aortic regurgitation is present. There is no tricuspid stenosis. No tricuspid regurgitation. Unable to calculate RVSP due lack of TR jet. There is no pulmonic valvular stenosis. There is no pulmonic valvular regurgitation. The aortic root is normal size. There is no pericardial effusion. MMode/2D Measurements & Calculations RVDd: 2.8 cm LVIDd: 5.3 cm FS: 39.3 % Ao root diam: 3.0 cm IVSd: 0.96 cm LVIDs: 3.2 cm EDV(Teich): 133.2 ml Ao root area: 7.2 cm2 LVPWd: 0.98 cm ESV(Teich): 40.7 ml EF(Teich): 69.4 % Doppler Measurements & Calculations MV E max avelino: MV dec slope: Ao V2 max: LV V1 max P.3 cm/sec 105.0 cm/sec 1.8 mmHg MV A max avelino: 209.1 cm/sec2 Ao max PG: LV V1 max: 66.3 cm/sec MV dec time: 0.25 sec4.4 mmHg 67.8 cm/sec MV E/A: 0.77 PA V2 max: 92.5 cm/sec PA max P.4 mmHg Left Ventricle The left ventricle is normal in size. There is normal left ventricular wall thickness. LV EF is > than 65%. Left ventricular systolic function is normal. Doppler measurements suggest impaired left ventricular relaxation, which is associated with grade I/IV or mild diastolic dysfunction. No defenite focal or regional wall motion abnormality. There is no thrombus. Right Ventricle The right ventricle is not well visualized secondary to technical limitations. Atria Right atrium not well visualized secondary to technical limitations. The left atrial size is normal. Mitral Valve There is no evidence of mitral valve prolapse. There is no vegetation seen on the mitral valve. There is no mitral valve stenosis. There is no mitral regurgitation noted. Aortic Valve There is no aortic valvular vegetation. There is no aortic valve stenosis. There is no LVOT obstruction. No aortic regurgitation is present. Tricuspid Valve There is no tricuspid stenosis. No tricuspid regurgitation. Unable to calculate RVSP due lack of TR jet. Pulmonic Valve There is no pulmonic valvular stenosis. There is no pulmonic valvular regurgitation. Great Vessels The aortic root is normal size. Effusions There is no pericardial effusion. : FANG EL > Fang El
== END ==
LOC: SP 09:57
PROVIDERS: ATTEND Specialist
DX: R94.31 Abnormal electrocardiogram [ECG] [EKG] (principal)
CPT/HCPCS: 93306

== ENCOUNTER 2018-05-15 05:38 | Inpatient (IN) | payer MEDICARE, OTHER ==
[~2018-05-15 05:38] MED LIST changes: +BUPIVACAINE INJ/PF LIPOSOME/PF 266 MG/20 ML SDV INJ PRN; +CEFAZOLIN 2 GM/D5W RTU 2 GM/50 ML RTUPB IV ONE; +CEFAZOLIN 2 GM/D5W RTU 2 GM/50 ML RTUPB IV PRN; +IBUPROFEN 800 MG in NORMAL SALINE 250 ML IV PRN; +LACTATED RINGERS 1000 ML IV PRN; +LANSOPRAZOLE 15 MG TAB.RAP.DR PO PRN; +LANSOPRAZOLE 30 MG TAB.RAP.DR ONE; +LIDOCAINE 0.5% INJ-PF (5 MG/ML) 50 ML SDV SUBCUT PRN; +OXYCODONE HCL SR 10 MG TABLET PO ONE; +OXYCODONE HCL SR 10 MG TABLET PO PRN; -REGADENOSON INJ 0.4 MG/5 ML DISP.SYRIN IV ONE
[2018-05-15] MEDS ORDERED: THROMBIN (BOVINE) TOPICAL 5000 UNIT VIAL ONE (06:35)
[2018-05-15] MEDS ORDERED: BUPIVACAINE INJ/PF LIPOSOME/PF 266 MG/20 ML SDV ONE (06:36)
[2018-05-15] MEDS ORDERED: FENTANYL CITRATE INJ/PF 100 MCG/2 ML AMPUL ONE (07:05)
[2018-05-15] MEDS ORDERED: ACETAMINOPHEN 1,000 MG/100 ML RTUPB IV ONE (07:05)
[2018-05-15] MEDS ORDERED: MIDAZOLAM 2 MG/2 ML INJ ONE (07:05)
[2018-05-15] MEDS ORDERED: PROPOFOL INJ 200 MG/20 ML VIAL IV ONE (07:05)
[2018-05-15] MEDS ORDERED: MEPERIDINE HCL/PF INJ 25 MG/1 ML DISP.SYRIN IV PRN (08:10)
[2018-05-15] MEDS ORDERED: PROMETHAZINE HCL INJ 25 MG/1 ML VIAL IV PRN ×2 (08:10)
[2018-05-15] MEDS ORDERED: MORPHINE SULFATE 10 MG/ML INJ IV PRN (08:10)
[2018-05-15] MEDS ORDERED: FENTANYL CITRATE INJ/PF 100 MCG/2 ML AMPUL IV PRN ×3 (08:10)
[2018-05-15] MEDS ORDERED: DIPHENHYDRAMINE HCL 50 MG/ML VIAL IV PRN (08:10)
[2018-05-15] MEDS ORDERED: MAG HYDROX/AL HYDROX/SIMETH SUSP 30 ML UDCUP PO PRN (10:11)
[2018-05-15] MEDS ORDERED: ACETAMINOPHEN 325 MG TABLET PO PRN (10:11)
[2018-05-15] MEDS ORDERED: ONDANSETRON HCL INJ/PF 4 MG/2 ML SDV IV PRN (10:11)
[2018-05-15] MEDS ORDERED: RINGERS SOLUTION,LACTATED 1,000 ML IV PRN (10:11)
--- NOTE | 2018-05-15 10:11 | Operative Report ---
Operative Report DATE OF SURGERY: 05/15/18 PREOPERATIVE DIAGNOSIS: Right knee osteoarthritis POSTOPERATIVE DIAGNOSIS: Same OPERATION: Right total knee arthroplasty SURGEON: MORENO MARIO ANESTHESIA: GA TISSUE REMOVED OR ALTERED: Bone cuts COMPLICATIONS: None ESTIMATED BLOOD LOSS: 50mL INTRAOPERATIVE FINDINGS: As above PROCEDURE: Patient received preoperative antibiotics and was taken to the operating room where she received spinal anesthetic. Patient was placed supine position and a thigh tourniquet was applied to left lower extremity. A bump was applied under buttocks and then the right lower extremity was prepped and draped in a normal sterile surgical fashion. Timeout was done identifying the right knee as the correct site. Esmarch was used to exsanguinate the extremity and the tourniquet was inflated at 325 mmHg. Of note we deflated tourniquet at the end of the procedure at 120 minutes. Midline incision was done over the knee and dissection was taken down to the retinaculum and extensor mechanism and a medial peripatellar arthrotomy was done exposing the knee. Patient had bone-on- bone osteoarthritis as confirmed by x-ray with mild joint effusion. We then proceeded to do a medial release and excision of the medial meniscus and lateral meniscus. We moved remove the fat pad and then we flexed the knee at 90 and then remove the ACL and PCL as well. We subluxed the tibia anteriorly and placed the retractors and proceeded to do our tibial cut first. We drilled intramedullary and placed our intramedullary guide and pin the guide by measuring off the medial side which was the low side. We proceeded to do our tibial cut successfully. I was satisfied with the cut so I then proceeded to turn my attention to the femoral side and drilled intramedullary and then placed my intramedullary guide to do my distal femoral cut. We proceeded to us to pin it in place and then do our use a saw to do my distal femoral cut. Once I was satisfied with my distal femoral cut I removed the guide and then use a spacer to confirm proper balance. Initially I felt that my extension gap was balanced with 11 mm spacer. This was removed and I did proceed to size and do my 4-in-1 cutting block of the femur. I measured and used a size 5 femur and proceeded to do my 4 and 1 cuts. Proceeded to drill the lug holes. I trialed he 5 femur l with a size 4 initially but ended up choosing a 5 tibia and 11 spacer. I was satisfied with the flexion extension side proceeded to do my patellar cut using the guide. The patella measured 29 mm and we proceeded to resect 7-8 mm and left 12-13 mm behind after my cut was completed. I drilled the holes and placed the trial component and placed in range of motion. I was satisfied with her range of motion and stability so I proceeded to remove all the implants and opened final components of the tibial tray, femur and patella button. I still use the trialed spacers at the end for repeat examination. Once I used copious irrigation and pulse lavage to clean out the bone I then proceeded to mix cement and appropriately cement the tibial component first and remove the excess cement. I then cemented the femoral component and remove the excess cement. I placed a trial spacer and cemented my patellar button. We waited until the cement had hardened and then needed to inject Exparel in the posterior capsule and periosteum. I then proceeded to put the final polyethylene spacer that measured 11 at this point I proceeded to do my. Closure where I used #1 Vicryl for the arthrotomy and quadriceps tendon. I used thrombin for the knee and then I proceeded to close the subcutaneous fat with 0 Vicryl and 2-0 Vicryl for dermis and mushtaq for skin. 4 x 4 dressing and OpSite dressing was applied the extremity was wrapped with soft roll and Viet bandage. Tourniquet was let down and drapes were removed. Patient was then transferred to PACU in stable condition.
[2018-05-15] MEDS ORDERED: ALBUTEROL SULFATE 0.042% NEB (1.25 MG/3 ML) AMPUL NEB PRN (10:24)
[2018-05-15] MEDS ORDERED: ASPIRIN 81 MG TABLET, CHEWABLE PO SCH (10:30)
--- NOTE | 2018-05-15 10:47 | RADIOLOGY REPORT (SQ) ---
EXAM DESCRIPTION: KNEE RIGHT 2 VIEWS COMPLETED DATE/TIME: 05/15/2018 10:37 am REASON FOR STUDY: Post OP -Long Cassette in PACU M17.11 UNILATERAL PRIMARY OSTEOARTHRITIS, RIGHT KN EE COMPARISON: None. NUMBER OF VIEWS: Two view(s). TECHNIQUE: Digital radiographic images of the right knee post-procedure. LIMITATIONS: None. FINDINGS: BONES: No worrisome or unexpected findings post-procedure. DEVICE: Total knee arthroplasty SOFT TISSUES: No worrisome findings. Expected postoperative soft tissue changes. IMPRESSION: SATISFACTORY POSTOPERATIVE RIGHT KNEE. TECHNICAL DOCUMENTATION: JOB ID: [id number] [employer]- All Rights Reserved Reading location - IP/workstation name: [email or web address]
[2018-05-15] MEDS ORDERED: HYDROMORPHONE HCL INJ/PF 2 MG/ML AMPULE IV PRN (12:44)
[2018-05-15] MEDS ORDERED: DEXAMETHASONE SOD PHOSPHATE INJ 4 MG/1 ML VIAL ONE (13:54)
[2018-05-15] MEDS ORDERED: ONDANSETRON HCL INJ/PF 4 MG/2 ML SDV ONE (13:54)
[2018-05-15] MEDS ORDERED: PHENYLEPHRINE HCL INJ/PF 10 MG/1 ML SDV ONE (13:54)
[2018-05-15] MEDS ORDERED: TRANEXAMIC ACID INJ/PF 1,000 MG/10 ML SDV IV ONE (14:00)
[2018-05-15] MEDS: OXYCODONE-ACETAMINOPHEN 5-325 MG TABLET PO PRN (15:43)
[2018-05-15] MEDS: PREGABALIN 75 MG CAPSULE PO SCH (19:14)
[2018-05-15] MEDS: IBUPROFEN 800 MG in NORMAL SALINE 250 ML IV SCH (19:14)
[2018-05-15] MEDS: SENNOSIDES/DOCUSATE 8.6-50 MG 1 EACH TABLET PO SCH (19:15)
[2018-05-15] MEDS ORDERED: VANCOMYCIN HCL 1,000 MG in DEXTROSE 5%-WATER 250 ML IV ONE (22:00)
[2018-05-15] MEDS: VENLAFAXINE HCL 75 MG TABLET PO SCH (22:05)
[2018-05-15] MEDS: OXYCODONE HCL SR 10 MG TABLET PO SCH (22:05)
[2018-05-15] MEDS: MONTELUKAST SODIUM 10 MG TABLET PO SCH (22:05)
[2018-05-16] MEDS: IBUPROFEN 800 MG in NORMAL SALINE 250 ML IV SCH ×3 (02:56→19:23)
[2018-05-16] MEDS: LEVOTHYROXINE SODIUM 0.075 MG TABLET PO SCH (06:26)
[2018-05-16] MEDS: LANSOPRAZOLE 30 MG TAB.RAP.DR PO SCH (06:26)
[2018-05-16] MEDS: PREGABALIN 75 MG CAPSULE PO SCH ×2 (06:26→19:24)
[2018-05-16 07:14] LABS: HEMATOCRIT 30.3 % (36.0-47.0); HEMOGLOBIN 10.2 g/dL (12.0-15.5); MEAN CORPUSCULAR HEMOGLOBIN 31.7 pg (27.0-33.4); MEAN CORPUSCULAR HGB CONC 33.8 g/dL (32.0-36.0); MEAN CORPUSCULAR VOLUME 94 fl (80-97); PLATELET COUNT 136 10^3/uL (150-450); RED BLOOD COUNT 3.22 10^6/uL (3.72-5.28); RED CELL DISTRIBUTION WIDTH 13.8 % (11.5-14.0); WHITE BLOOD COUNT 8.8 10^3/uL (4.0-10.5)
[2018-05-16 09:27] LABS: ANION GAP 7 (5-19); BLOOD UREA NITROGEN 18 mg/dL (7-20); CALCIUM 8.7 mg/dL (8.4-10.2); CARBON DIOXIDE 25 mmol/L (22-30); CHLORIDE 108 mmol/L (98-107); GLUCOSE 120 mg/dL (75-110); POTASSIUM 3.9 mmol/L (3.6-5.0); SODIUM 140.3 mmol/L (137-145)
[2018-05-16] MEDS ORDERED: (PENDING PHARMACY ID) (Rosuvastatin Calcium [Crestor 5 Mg Tablet] 5 MG) PO SCH (10:00)
[2018-05-16] MEDS ORDERED: (PENDING PHARMACY ID) (Omeprazole Magnesium [Prilosec Otc] 40 MG) PO SCH (10:00)
[2018-05-16] MEDS: SENNOSIDES/DOCUSATE 8.6-50 MG 1 EACH TABLET PO SCH ×2 (10:27→19:24)
[2018-05-16] MEDS: OXYCODONE-ACETAMINOPHEN 5-325 MG TABLET PO PRN ×2 (10:27→19:24)
[2018-05-16] MEDS: PRENATAL VITAMIN W DHA CAPSULE PO SCH (10:27)
[2018-05-16] MEDS: VENLAFAXINE HCL 75 MG TABLET PO SCH ×2 (10:28→22:13)
[2018-05-16] MEDS: TOPIRAMATE 100 MG TABLET PO SCH (10:28)
[2018-05-16] MEDS: OXYCODONE HCL SR 10 MG TABLET PO SCH ×2 (10:28→22:14)
--- NOTE | 2018-05-16 15:29 | PDOC PROGRESS REPORT ---
Subjective Progress Note for:: 05/16/18 Subjective:: Patient complaining of significant right knee pain. Has significant pain with that therapy as well. Denies any fevers or chills or any shortness of breath or any other issues overnight. Reason For Visit: M17.11 UNILATERAL PRIMARY OSTEOARTHRITIS, RIGHT KN Physical Exam Vital Signs: Temp Pulse Resp BP Pulse Ox 36.3 C 72 16 107/52 L 97 05/16/18 00:18 05/16/18 00:18 05/16/18 00:18 05/16/18 00:18 05/16/18 00:18 Intake & Output 05/15/18 05/16/18 05/17/18 06:59 06:59 06:59 Intake Total 0 3470 Output Total 1100 Balance 0 2370 Weight 102.06 kg 101.5 kg Adult Front & Back Image: 1 - Dressing is dry clean and intact. Her calf is soft and nontender with negative Michelle. She has good sensation to light touch with a 5 out of 5 motor distally for ankle flexion dorsiflexion and extension and flexion of her toes. Results Laboratory Results: 05/16/18 06:33 05/16/18 06:33 05/16/18 05/16/18 06:33 06:33 WBC 8.8 RBC 3.22 L Hgb 10.2 L Hct 30.3 L MCV 94 MCH 31.7 MCHC 33.8 RDW 13.8 Plt Count 136 L Sodium 140.3 Potassium 3.9 Chloride 108 H Carbon Dioxide 25 Anion Gap 7 BUN 18 Creatinine 1.04 Est GFR ( Amer) > 60 Est GFR (Non-Af Amer) 52 L Glucose 120 H Calcium 8.7 Impressions: Knee X-Ray 05/15/18 10:14 IMPRESSION: SATISFACTORY POSTOPERATIVE RIGHT KNEE. Assessment & Plan - Diagnosis (1) Total knee replacement status Qualifiers: Laterality: right Qualified Code(s): Z96.651 - Presence of right artificial knee joint Is this a current diagnosis for this admission?: Yes Plan: Patient is postop day 1 from right total knee arthroplasty. Patient's pain is a bit significant but patient participated with physical therapy very well. Continue Xarelto for DVT prophylaxis Anticipate her discharge either tomorrow or Saturday depending on her pain level. We will discharge her with home health and follow-up in 10-14 days.
[2018-05-16] MEDS: MONTELUKAST SODIUM 10 MG TABLET PO SCH (22:14)
[2018-05-16] MEDS: ATORVASTATIN CALCIUM 10 MG TABLET PO SCH (22:15)
[2018-05-17] MEDS: IBUPROFEN 800 MG in NORMAL SALINE 250 ML IV SCH ×3 (03:30→17:06)
[2018-05-17 06:02] LABS: HEMATOCRIT 30.3 % (36.0-47.0); HEMOGLOBIN 10.2 g/dL (12.0-15.5); MEAN CORPUSCULAR HEMOGLOBIN 31.8 pg (27.0-33.4); MEAN CORPUSCULAR HGB CONC 33.7 g/dL (32.0-36.0); MEAN CORPUSCULAR VOLUME 94 fl (80-97); PLATELET COUNT 149 10^3/uL (150-450); RED BLOOD COUNT 3.21 10^6/uL (3.72-5.28); WHITE BLOOD COUNT 10.1 10^3/uL (4.0-10.5)
[2018-05-17] MEDS: LEVOTHYROXINE SODIUM 0.075 MG TABLET PO SCH (06:33)
[2018-05-17] MEDS: LANSOPRAZOLE 30 MG TAB.RAP.DR PO SCH (06:33)
[2018-05-17] MEDS: PREGABALIN 75 MG CAPSULE PO SCH ×2 (06:34→17:06)
[2018-05-17] MEDS: OXYCODONE HCL SR 10 MG TABLET PO SCH (09:28)
[2018-05-17] MEDS: SENNOSIDES/DOCUSATE 8.6-50 MG 1 EACH TABLET PO SCH ×2 (09:28→17:06)
[2018-05-17] MEDS: PRENATAL VITAMIN W DHA CAPSULE PO SCH (09:28)
[2018-05-17] MEDS: TOPIRAMATE 100 MG TABLET PO SCH (09:28)
[2018-05-17] MEDS: VENLAFAXINE HCL 75 MG TABLET PO SCH ×2 (09:28→21:34)
[2018-05-17] MEDS: ATORVASTATIN CALCIUM 10 MG TABLET PO SCH (21:34)
[2018-05-17] MEDS: MONTELUKAST SODIUM 10 MG TABLET PO SCH (21:34)
[2018-05-17] MEDS: OXYCODONE-ACETAMINOPHEN 5-325 MG TABLET PO PRN (21:42)
[2018-05-18] MEDS: IBUPROFEN 800 MG in NORMAL SALINE 250 ML IV SCH ×2 (02:25→10:37)
[2018-05-18] MEDS: LEVOTHYROXINE SODIUM 0.075 MG TABLET PO SCH (06:00)
[2018-05-18] MEDS: LANSOPRAZOLE 30 MG TAB.RAP.DR PO SCH (06:00)
[2018-05-18] MEDS: PREGABALIN 75 MG CAPSULE PO SCH ×2 (06:00→17:31)
[2018-05-18 07:24] LABS: HEMATOCRIT 28.2 % (36.0-47.0); HEMOGLOBIN 9.5 g/dL (12.0-15.5); MEAN CORPUSCULAR HEMOGLOBIN 31.5 pg (27.0-33.4); MEAN CORPUSCULAR HGB CONC 33.7 g/dL (32.0-36.0); MEAN CORPUSCULAR VOLUME 94 fl (80-97); PLATELET COUNT 155 10^3/uL (150-450); RED BLOOD COUNT 3.01 10^6/uL (3.72-5.28); RED CELL DISTRIBUTION WIDTH 13.9 % (11.5-14.0); WHITE BLOOD COUNT 8.9 10^3/uL (4.0-10.5)
--- NOTE | 2018-05-18 08:58 | PDOC PROGRESS REPORT ---
Subjective Progress Note for:: 05/18/18 Reason For Visit: M17.11 UNILATERAL PRIMARY OSTEOARTHRITIS, RIGHT KN 72-year-old white female postop day 3 status post right knee arthroplasty. Patient complaining of excruciating pain overnight worse with motion. Also complaining about a asthma flare with a history of bronchial asthma in the past. She has been taking her home medications. Physical Exam Vital Signs: Temp Pulse Resp BP Pulse Ox 36.9 C 83 22 H 117/56 L 97 05/18/18 07:59 05/18/18 07:59 05/18/18 07:59 05/18/18 07:59 05/18/18 07:59 Intake & Output 05/17/18 05/18/18 05/19/18 06:59 06:59 06:59 Intake Total 1498 1752 Balance 1498 1752 Weight 101.1 kg General appearance: PRESENT: mild distress, obese, severe distress Head exam: PRESENT: normocephalic Respiratory exam: PRESENT: wheezes Cardiovascular exam: PRESENT: RRR Pulses: PRESENT: +1 pedal pulses bilateral Vascular exam: PRESENT: normal capillary refill GI/Abdominal exam: PRESENT: soft Rectal exam: PRESENT: deferred Extremities exam: PRESENT: other - Right lower extremity wrapped in an Viet wrap. There is brisk capillary refill distally. Dressing is dry. Neurological exam: PRESENT: alert, awake, oriented to person, oriented to place , oriented to time, oriented to situation. ABSENT: motor sensory deficit Psychiatric exam: PRESENT: appropriate affect, normal mood. ABSENT: homicidal ideation, suicidal ideation Skin exam: PRESENT: dry, intact, warm. ABSENT: cyanosis, rash Results Laboratory Results: 05/18/18 06:15 05/16/18 06:33 05/18/18 06:15 WBC 8.9 RBC 3.01 L Hgb 9.5 L Hct 28.2 L MCV 94 MCH 31.5 MCHC 33.7 RDW 13.9 Plt Count 155 Impressions: Knee X-Ray 05/15/18 10:14 IMPRESSION: SATISFACTORY POSTOPERATIVE RIGHT KNEE. Status: Imported from PACS Assessment & Plan - Diagnosis (1) Asthma Qualifiers: Asthma severity: moderate Asthma persistence: persistent Asthma complication type: with acute exacerbation Qualified Code(s): J45.41 - Moderate persistent asthma with (acute) exacerbation Is this a current diagnosis for this admission?: Yes Plan: Respiratory therapy consult for? Peter (2) Total knee replacement status Qualifiers: Laterality: right Qualified Code(s): Z96.651 - Presence of right artificial knee joint Is this a current diagnosis for this admission?: Yes Plan: Patient with plans for discharge home with home health services but she has not yet reached a functional level with which to make this transition. We will continue on with physical therapy today and increase her analgesia so that she can participate better with physical therapy. - Time Time Spent with patient: 15-24 minutes Anticipated discharge: Home with Homehealth Within: Other
[2018-05-18] MEDS ORDERED: IPRATROPIUM/ALBUTEROL 0.5-2.5 MG/3 ML AMPUL NEB ONE ×2 (09:12→10:00)
[2018-05-18] MEDS ORDERED: IPRATROPIUM/ALBUTEROL 0.5-2.5 MG/3 ML AMPUL NEB PRN (09:27)
[2018-05-18] MEDS: PRENATAL VITAMIN W DHA CAPSULE PO SCH (09:36)
[2018-05-18] MEDS: OXYCODONE HCL SR 40 MG TABLET PO SCH ×2 (09:36→21:33)
[2018-05-18] MEDS: VENLAFAXINE HCL 75 MG TABLET PO SCH ×2 (09:36→21:33)
[2018-05-18] MEDS: SENNOSIDES/DOCUSATE 8.6-50 MG 1 EACH TABLET PO SCH ×2 (09:37→17:31)
[2018-05-18] MEDS: TOPIRAMATE 100 MG TABLET PO SCH (09:37)
[2018-05-18] MEDS: MONTELUKAST SODIUM 10 MG TABLET PO SCH (21:39)
[2018-05-18] MEDS: ATORVASTATIN CALCIUM 10 MG TABLET PO SCH (21:40)
[2018-05-19] MEDS: LEVOTHYROXINE SODIUM 0.075 MG TABLET PO SCH (05:47)
[2018-05-19] MEDS: PREGABALIN 75 MG CAPSULE PO SCH ×2 (05:47→17:22)
[2018-05-19] MEDS: LANSOPRAZOLE 30 MG TAB.RAP.DR PO SCH (05:47)
[2018-05-19] MEDS: PRENATAL VITAMIN W DHA CAPSULE PO SCH (09:45)
[2018-05-19] MEDS: SENNOSIDES/DOCUSATE 8.6-50 MG 1 EACH TABLET PO SCH ×2 (09:45→17:22)
[2018-05-19] MEDS: VENLAFAXINE HCL 75 MG TABLET PO SCH (09:45)
[2018-05-19] MEDS: TOPIRAMATE 100 MG TABLET PO SCH (09:45)
[2018-05-19] MEDS: OXYCODONE HCL SR 40 MG TABLET PO SCH ×2 (09:45→21:35)
[2018-05-19] MEDS ORDERED: NA PHOS,M-B/NA PHOS,DI-BA (ADULT) 133 ML ENEMA PR ONE (10:30)
--- NOTE | 2018-05-19 12:45 | PDOC PROGRESS REPORT ---
Subjective Progress Note for:: 05/19/18 Subjective:: Patient passing gas but not had a bowel movement yet. she had a asthma attack this weekend but since has recovered nicely. Reason For Visit: M17.11 UNILATERAL PRIMARY OSTEOARTHRITIS, RIGHT KN Physical Exam Vital Signs: Temp Pulse Resp BP Pulse Ox 37.2 C 93 20 139/61 H 100 05/19/18 11:22 05/19/18 11:22 05/19/18 11:22 05/19/18 11:22 05/19/18 11:22 Intake & Output 05/18/18 05/19/18 05/20/18 06:59 06:59 06:59 Intake Total 1752 2075 Balance 1752 2075 General appearance: PRESENT: no acute distress Adult Front & Back Image: 1 - Dressing dry clean and intact. NVI distally. ROM -15 to 75 degrees flexion Results Laboratory Results: 05/18/18 06:15 05/16/18 06:33 Impressions: Knee X-Ray 05/15/18 10:14 IMPRESSION: SATISFACTORY POSTOPERATIVE RIGHT KNEE. Status: Image reviewed by me Assessment & Plan - Diagnosis (1) Total knee replacement status Qualifiers: Laterality: right Qualified Code(s): Z96.651 - Presence of right artificial knee joint Is this a current diagnosis for this admission?: Yes Plan: POD #4 R TKA Fleets enematoday Dressing changed today Continue PT , pain control and DVT prophylaxis Potential D/C tomorrow with Home health
[2018-05-19] MEDS: BUPROPION HCL 100 MG TABLET PO SCH ×2 (13:43→21:35)
[2018-05-19] MEDS: OXYCODONE-ACETAMINOPHEN 5-325 MG TABLET PO PRN (17:22)
[2018-05-19] MEDS: MONTELUKAST SODIUM 10 MG TABLET PO SCH (21:35)
[2018-05-19] MEDS: VENLAFAXINE HCL 75 MG CAP.SR.24H PO SCH (21:35)
[2018-05-19] MEDS: ATORVASTATIN CALCIUM 10 MG TABLET PO SCH (21:35)
[2018-05-19] MEDS ORDERED: VENLAFAXINE HCL 75 MG CAP.SR.24H PO SCH (22:00)
[2018-05-20] MEDS: LANSOPRAZOLE 30 MG TAB.RAP.DR PO SCH (05:23)
[2018-05-20] MEDS: BUPROPION HCL 100 MG TABLET PO SCH ×2 (05:23→13:16)
[2018-05-20] MEDS: LEVOTHYROXINE SODIUM 0.075 MG TABLET PO SCH (05:23)
[2018-05-20] MEDS: PREGABALIN 75 MG CAPSULE PO SCH (05:23)
--- NOTE | 2018-05-20 07:39 | PDOC DISCHARGE SUMMARY ---
General - Admit/Disc Date/PCP Admission Date/Primary Care Provider: 05/15/18 05:38 ERROL MILLIGAN MD Discharge Date: 05/20/18 - Discharge Diagnosis (1) Total knee replacement status Is this a current diagnosis for this admission?: Yes - Additional Information Resuscitation Status: Full Code Home Medications: Levothyroxine Sodium [Synthroid 75 Mcg Tablet] 75 mcg PO DAILY 07/30/11 Montelukast Sodium [Singulair 10 Mg Tablet] 10 mg PO QPM 07/30/11 Topiramate [Topamax 100 Mg Tablet] 200 mg PO DAILY 07/30/11 Meloxicam [Mobic 15 mg Tablet] 15 mg PO DAILY 07/02/16 Omeprazole Magnesium [Prilosec Otc] 40 mg PO DAILY 07/02/16 Docusate Sodium [Stool Softener] 2 cap PO QHS 05/08/18 Multivitamin [Multiple Vitamins] 1 tab PO DAILY 05/08/18 Bupropion HCl [Wellbutrin Xl 150 mg 24hr Tablet] 300 mg PO DAILY 05/15/18 Rosuvastatin Calcium [Crestor] 40 mg PO DAILY 05/15/18 Venlafaxine HCl [Effexor Xr] 150 mg PO Q12 05/19/18 History of Present Illness Patient complains of: Right knee osteoarthritis History of Present Illness: NILSA MCDUFFIE is a 72 year old female with known arthritis of the right knee. Patient initially was treated with injection medication and conservative treatment but after this has failed discussion was to proceed with right total knee arthroplasty. Patient understood and agreed to proceed with surgery on . Surgery was uneventful. Patient stayed in the hospital for 5 days and after pain control and bowel movement patient will be discharged home with home health and follow-up in 1 week in our office. Hospital Course Hospital Course: On 05/16/2015 patient underwent right total knee arthroplasty with no complications. Postop x-rays showed good placement and no fractures. Patient vital signs were stable throughout her hospital stay but she did have some issues with pain control and on postop day 2 and 3 she did have bit of a asthma attack. This was resolved with her home medications. Patient required a fleets enema to stimulate a bowel movement on postop day 4. Today on postop day 5 patient is doing well her pain is well controlled she was able to get up to use a walker and use the bathroom unassisted and has no new complaints. She will be discharged with home health and told to follow-up in 1 week in the office. Physical Exam Vital Signs: Temp Pulse Resp BP Pulse Ox 37.0 C 92 19 113/52 L 98 05/20/18 00:00 05/20/18 00:00 05/20/18 00:00 05/20/18 00:00 05/20/18 00:00 Intake & Output 05/19/18 05/20/18 05/21/18 06:59 06:59 06:59 Intake Total 2074 182 Output Total 2 Balance 2074 181 Weight 126.1 kg General appearance: PRESENT: no acute distress Head exam: PRESENT: normocephalic Eye exam: PRESENT: EOMI, other - White sclerae, symmetric pupils Ear exam: PRESENT: normal external ear exam Mouth exam: PRESENT: neck supple Neck exam: ABSENT: lymphadenopathy, thyromegaly Respiratory exam: PRESENT: symmetrical, unlabored. ABSENT: accessory muscle use , tachypnea Pulses: PRESENT: +2 pedal pulses bilateral Vascular exam: PRESENT: normal capillary refill GI/Abdominal exam: PRESENT: soft. ABSENT: distended, tenderness Neurological exam: PRESENT: alert, awake, oriented to person, oriented to place , oriented to time, oriented to situation Psychiatric exam: PRESENT: appropriate affect, normal mood Skin exam: ABSENT: erythema, skin tears Adult Front & Back Image: 1 - Incision and mushtaq are dry clean and intact. New dressing applied is dry clean and intact. Range of motion is -15 degrees of extension to about 75 degrees of flexion. Stable knee exam. Moderate swelling with no ecchymosis. Soft calf with a negative Homans sign. She is neurovascular intact distally. Results Laboratory Results: 05/18/18 06:15 05/16/18 06:33 Impressions: Knee X-Ray 05/15/18 10:14 IMPRESSION: SATISFACTORY POSTOPERATIVE RIGHT KNEE. Status: Image reviewed by me Qualifiers - * PATIENT BEING DISCHARGED WITH ANY OF THE FOLLOWING DIAGNOSIS: No Plan Discharge Plan: 72-year-old female postop day 5 being discharged after right total knee arthroplasty. Patient will continue range of motion exercises and weight-bear as tolerated on the right lower extremity. She will use a walker for ambulation and will be provided a bedside commode. She has been given prescriptions for Percocet and Xarelto and Colace. She will follow-up in 7-10 days in the office for wound check. She is instructed to call us sooner and see us sooner if she does any fevers chills redness or drainage from her wound. Same for any shortness of breath and chest pain. She instructed to try to change her dressing in 4 days and allowed to shower the incision at that point.
[2018-05-20] MEDS: VENLAFAXINE HCL 75 MG CAP.SR.24H PO SCH (09:46)
[2018-05-20] MEDS: TOPIRAMATE 100 MG TABLET PO SCH (09:47)
[2018-05-20] MEDS: SENNOSIDES/DOCUSATE 8.6-50 MG 1 EACH TABLET PO SCH (09:47)
[2018-05-20] MEDS: PRENATAL VITAMIN W DHA CAPSULE PO SCH (09:47)
[2018-05-20] MEDS: OXYCODONE HCL SR 40 MG TABLET PO SCH (09:47)
[2018-05-20 15:23] VITALS: BP 113/52
[2018-05-20] MEDS: OXYCODONE-ACETAMINOPHEN 5-325 MG TABLET PO PRN (15:45)
== END 2018-05-20 16:15 | disposition home health service (06) | DRG 470 ==
LOC: INOR 05:38 → 4S 11:09
PROVIDERS: ADMIT Orthopaedic Surgery; ATTEND Orthopaedic Surgery
PROC: 0SRC0J9 Replacement of Right Knee Joint with Synthetic Substitute, Cemented, Open Approach (ICD-10-PCS; principal; 2018-05-15 07:30)
PROC: 3E0F73Z Introduction of Anti-inflammatory into Respiratory Tract, Via Natural or Artificial Opening (ICD-10-PCS; 2018-05-18)
DX: M17.11 Unilateral primary osteoarthritis, right knee (principal); J45.41 Moderate persistent asthma with (acute) exacerbation; E78.00 Pure hypercholesterolemia, unspecified; F32.9 Major depressive disorder, single episode, unspecified; Z79.899 Other long term (current) drug therapy; Z90.710 Acquired absence of both cervix and uterus
CPT/HCPCS: 01402; 36415; 80048; 85027; 88305; 88311; 94640; 94799; C1713; C1776; C9290; G8978-GP; G8979-GP; G8987-GO; G8988-GO; G8989-GO; J0131; J0171; J0690; J1100; J1170; J1741; J2250; J2370; J2405; J2704; J3010; J3370; J3490; J7050; J7060; J7120; J7620

== ENCOUNTER → 2018-07-08 | Outpatient (CLI) | payer MEDICARE, OTHER ==
[2018-07-08 12:07] LABS: ABSOLUTE EOSINOPHILS # (AUTO) 0.1 10^3/uL (0.0-0.6); ABSOLUTE LYMPHOCYTES (AUTO) 1.7 10^3/uL (0.5-4.7); ABSOLUTE MONOCYTES (AUTO) 0.7 10^3/uL (0.1-1.4); ABSOLUTE NEUT (AUTO) 3.3 10^3/uL (1.7-8.2); BASOPHILS % (AUTO) 0.9 % (0-2); EOSINOPHILS % (AUTO) 1.6 % (0-6); HEMATOCRIT 33.1 % (36.0-47.0); LYMPHOCYTES % (AUTO) 29.5 % (13-45); MEAN CORPUSCULAR HEMOGLOBIN 31.3 pg (27.0-33.4); MEAN CORPUSCULAR HGB CONC 33.1 g/dL (32.0-36.0); MEAN CORPUSCULAR VOLUME 95 fl (80-97); MONOCYTES % (AUTO) 11.5 % (3-13); PLATELET COUNT 215 10^3/uL (150-450); SEGMENTED NEUTROPHILS % (AUTO) 56.5 % (42-78); TOTAL CELLS COUNTED % (AUTO) 100 %; WHITE BLOOD COUNT 5.8 10^3/uL (4.0-10.5)
[2018-07-08 12:10] LABS: APPEARANCE,URINE SLIGHTLY-CLOUDY; BILIRUBIN,URINE NEGATIVE (NEGATIVE); COLOR,URINE YELLOW; GLUCOSE, URINE NEGATIVE (NEGATIVE); KETONES,URINE NEGATIVE (NEGATIVE); LEUKOCYTE ESTERASE,URINE MODERATE (NEGATIVE); NITRITE,URINE NEGATIVE (NEGATIVE); PROTEIN,URINE NEGATIVE (NEGATIVE); URINE SPECIFIC GRAVITY 1.008; UROBILINOGEN,URINE NEGATIVE mg/dL (<2.0)
--- NOTE | 2018-07-08 12:15 | RADIOLOGY REPORT (SQ) ---
EXAM DESCRIPTION: CHEST PA/LATERAL COMPLETED DATE/TIME: 07/08/2018 11:54 am REASON FOR STUDY: PRE-OP COMPARISON: 04/17/2018 EXAM PARAMETERS: NUMBER OF VIEWS: two views TECHNIQUE: Digital Frontal and Lateral radiographic views of the chest acquired. RADIATION DOSE: NA LIMITATIONS: none FINDINGS: LUNGS AND PLEURA: No opacities, masses or pneumothorax. No pleural effusion. MEDIASTINUM AND HILAR STRUCTURES: No masses or contour abnormalities. HEART AND VASCULAR STRUCTURES: Heart normal size. No evidence for failure. BONES: No acute findings. HARDWARE: Gastric band overlies GE junction. OTHER: No other significant finding. IMPRESSION: NO SIGNIFICANT RADIOGRAPHIC FINDING IN THE CHEST. TECHNICAL DOCUMENTATION: JOB ID: [id number] [employer]- All Rights Reserved Reading location - IP/workstation name: [email or web address]
[2018-07-08 12:40] LABS: ANION GAP 6 (5-19); BLOOD UREA NITROGEN 18 mg/dL (7-20); CALCIUM 9.3 mg/dL (8.4-10.2); CARBON DIOXIDE 26 mmol/L (22-30); CHLORIDE 109 mmol/L (98-107); GLUCOSE 72 mg/dL (75-110); POTASSIUM 4.6 mmol/L (3.6-5.0); SODIUM 141.4 mmol/L (137-145)
--- NOTE | 2018-07-08 21:41 | EKG REPORT ---
SEVERITY:- ABNORMAL ECG - SINUS RHYTHM PROBABLE LEFT VENTRICULAR HYPERTROPHY : Confirmed by: Mat Golden 08-Jul-2018 21:40:17
== END ==
LOC: OD 11:17
PROVIDERS: ATTEND Orthopaedic Surgery
DX: Z01.818 Encounter for other preprocedural examination (principal)
CPT/HCPCS: 36415; 71046; 80048; 81001; 85025; 93005; 93010

== ENCOUNTER 2018-07-24 05:21 | Inpatient (IN) | payer MEDICARE, OTHER ==
[~2018-07-24 05:21] MED LIST changes: -CEFAZOLIN 2 GM/D5W RTU 2 GM/50 ML RTUPB IV ONE; -CEFAZOLIN 2 GM/D5W RTU 2 GM/50 ML RTUPB IV PRN; +CEFAZOLIN INJ 1 GM VIAL IV PRN; -LANSOPRAZOLE 30 MG TAB.RAP.DR ONE; -OXYCODONE HCL SR 10 MG TABLET PO ONE; +VANCOMYCIN HCL 1,000 MG in DEXTROSE 5%-WATER 250 ML IV PRN
[2018-07-24] MEDS ORDERED: OXYCODONE HCL SR 10 MG TABLET PO ONE (05:41)
[2018-07-24] MEDS ORDERED: LANSOPRAZOLE 15 MG TAB.RAP.DR ONE (05:41)
[2018-07-24] MEDS ORDERED: CEFAZOLIN INJ 1 GM VIAL ONE (05:41)
[2018-07-24] MEDS ORDERED: DEXAMETHASONE SOD PHOSPHATE INJ 4 MG/1 ML VIAL ONE (06:19)
[2018-07-24] MEDS ORDERED: LIDOCAINE 2% INJ-PF (100 MG/5 ML) SYRINGE ONE (06:19)
[2018-07-24] MEDS ORDERED: FENTANYL CITRATE INJ/PF 100 MCG/2 ML AMPUL ONE ×2 (06:19→10:59)
[2018-07-24] MEDS ORDERED: ONDANSETRON HCL INJ/PF 4 MG/2 ML SDV ONE (06:19)
[2018-07-24] MEDS ORDERED: MIDAZOLAM 2 MG/2 ML INJ ONE (06:19)
[2018-07-24] MEDS ORDERED: ACETAMINOPHEN 1,000 MG/100 ML RTUPB IV ONE (06:20)
[2018-07-24] MEDS ORDERED: PROPOFOL INJ 200 MG/20 ML VIAL IV ONE (06:20)
[2018-07-24] MEDS ORDERED: BUPIVACAINE INJ/PF LIPOSOME/PF 266 MG/20 ML SDV ONE (07:05)
[2018-07-24] MEDS ORDERED: THROMBIN (BOVINE) TOPICAL 20000 UNIT VIAL ONE (07:05)
[2018-07-24] MEDS ORDERED: THROMBIN (BOVINE) TOPICAL 5000 UNIT VIAL ONE (07:05)
[2018-07-24] MEDS ORDERED: MORPHINE SULFATE 10 MG/ML INJ IV PRN (08:10)
[2018-07-24] MEDS ORDERED: ONDANSETRON HCL INJ/PF 4 MG/2 ML SDV IV PRN (08:10)
[2018-07-24] MEDS ORDERED: PROMETHAZINE HCL INJ 25 MG/1 ML VIAL IV PRN ×2 (08:10)
[2018-07-24] MEDS ORDERED: FENTANYL CITRATE INJ/PF 100 MCG/2 ML AMPUL IV PRN ×2 (08:10)
[2018-07-24] MEDS ORDERED: MEPERIDINE HCL/PF INJ 25 MG/1 ML DISP.SYRIN IV PRN (08:10)
[2018-07-24] MEDS ORDERED: DIPHENHYDRAMINE HCL 50 MG/ML VIAL IV PRN (08:10)
--- NOTE | 2018-07-24 09:57 | Operative Report ---
Operative Report DATE OF SURGERY: 07/24/18 PREOPERATIVE DIAGNOSIS: Left knee osteoarthritis POSTOPERATIVE DIAGNOSIS: Same OPERATION: Left total knee arthroplasty SURGEON: MORENO MARIO ANESTHESIA: Spinal TISSUE REMOVED OR ALTERED: bone cuts COMPLICATIONS: none ESTIMATED BLOOD LOSS: 50mL INTRAOPERATIVE FINDINGS: As above PROCEDURE: Patient received preoperative antibiotics and was taken to the operating room where she received spinal anesthetic. Patient was placed supine position and a thigh tourniquet was applied to left lower extremity. A bump was applied under buttocks and then the left lower extremity was prepped and draped in a normal sterile surgical fashion. Timeout was done identifying the left knee as the correct site. Esmarch was used to exsanguinate the extremity and the tourniquet was inflated at 300 mmHg. Of note we deflated tourniquet at the end of the proc edure at 74 minutes. Midline incision was done over the knee and dissection was taken down to the retinaculum and extensor mechanism and a paramedial arthrotomy was done exposing the knee. Patient had [id number]-am-rplh osteoarthritis as confirmed by x-ray with mild joint effusion. We then proceeded to do a medial release and excision of the medial meniscus and lateral meniscus. We moved remove the fat pad and then we flexed the knee at 90 and then remove the ACL and PCL as well. We subluxed the tibia anteriorly and placed the retractors and proceeded to do our tibial cut first. We drilled intramedullary and placed our intramedullary guide and pin the guide by measuring off the medial side which was the low side. We proceeded to do our tibial cut successfully. I was satisfied with the cut so I then proceeded to turn my attention to the femoral side and drilled intramedullary and then placed my intramedullary guide to do my distal femoral cut. We proceeded to us to pin it in place and then do our use a saw to do my distal femoral cut. Once I was satisfied with my distal femoral cut I removed the guide and then use a spacer to confirm proper balance. Initially I felt that my extension gap was balanced with 9 mm spacer. This was removed and I did proceed to size and do my 4-in-1 cutting block of the femur. I measured and used a size 5 and proceeded to do my 4 and 1 cuts. I trialed he 5 femur l with a size 5 tibia and 9 spacer. I was satisfied with the flexion extension side proceeded to do my patellar cut using the guide. The patella measured 21 mm and we proceeded to resect 9 mm and left 12 mm behind after my cut was completed. I drilled the holes and placed the trial component 29 and placed in range of motion. I was satisfied with her range of motion and st ability so I proceeded to remove all the implants and opened final components of the tibial tray, femur and patella button. I still use the trialed spacers at the end for repeat examination. Once I used copious irrigation and pulse lavage to clean out the bone I then proceeded to mix cement and appropriately cement the tibial component first and remove the excess cement. I then cemented the femoral component and remove the excess cement. I placed a trial spacer and cemented my patellar button. We waited until the cement had hardened and then needed to inject Exparel in the posterior capsule and periosteum. I then proceeded to put the final polyethylene spacer that measured 9 mm CS at this point I proceeded to do my. Closure where I used #1 Vicryl for the arthrotomy and quadriceps tendon. I used thrombin for the knee and then I proceeded to close the subcutaneous fat with 0 Vicryl and 2-0 Vicryl for dermis and mushtaq for skin. 4 x 4 dressing and OpSite dressing was applied the extremity was wrapped with soft roll and Viet bandage. Tourniquet was let down and drapes were removed. Patient was then transferred to PACU in stable condition.
[2018-07-24] MEDS ORDERED: RINGERS SOLUTION,LACTATED 1,000 ML IV PRN (10:03)
[2018-07-24] MEDS ORDERED: TRANEXAMIC ACID INJ/PF 1,000 MG/10 ML SDV IV ONE (10:15)
--- NOTE | 2018-07-24 10:24 | RADIOLOGY REPORT (SQ) ---
EXAM DESCRIPTION: KNEE LEFT 2 VIEWS COMPLETED DATE/TIME: 07/24/2018 10:15 am REASON FOR STUDY: post op pacu M17.12 UNILATERAL PRIMARY OSTEOARTHRITIS, LEFT KNEE COMPARISON: None. NUMBER OF VIEWS: Two views portable technique TECHNIQUE: Digital radiographic images of the left knee post-procedure. LIMITATIONS: None. FINDINGS: BONES: No worrisome or unexpected findings post-procedure. DEVICE: Left total knee replacement with patellar resurfacing, good alignment. SOFT TISSUES: No worrisome findings. Expected postoperative soft tissue changes. IMPRESSION: SATISFACTORY POSTOPERATIVE left KNEE. TECHNICAL DOCUMENTATION: JOB ID: [id number] [employer] All Rights Reserved Reading location - IP/workstation name: [email or web address]
[2018-07-24] MEDS: FENTANYL CITRATE INJ/PF 100 MCG/2 ML AMPUL IV PRN ×2 (11:09→11:20)
[2018-07-24] MEDS ORDERED: OXYCODONE-ACETAMINOPHEN 5-325 MG TABLET ONE (11:56)
[2018-07-24] MEDS: OXYCODONE-ACETAMINOPHEN 5-325 MG TABLET PO PRN ×3 (15:54→23:03)
[2018-07-24] MEDS ORDERED: VANCOMYCIN HCL 1,000 MG in DEXTROSE 5%-WATER 250 ML IV ONE (22:03)
[2018-07-24] MEDS: SENNOSIDES/DOCUSATE 8.6-50 MG 1 EACH TABLET PO SCH (22:53)
[2018-07-24] MEDS: VENLAFAXINE HCL 75 MG CAP.SR.24H PO SCH (22:59)
[2018-07-24] MEDS: BUPROPION HCL 100 MG TABLET PO SCH (22:59)
[2018-07-24] MEDS: MONTELUKAST SODIUM 10 MG TABLET PO SCH (22:59)
[2018-07-24] MEDS: ATORVASTATIN CALCIUM 80 MG TABLET PO SCH (22:59)
[2018-07-24] MEDS ORDERED: VANCOMYCIN HCL INJ 1000 MG VIAL ONE (23:48)
[2018-07-25] MEDS: ONDANSETRON HCL INJ/PF 4 MG/2 ML SDV IV PRN ×2 (01:28→09:11)
[2018-07-25] MEDS: OXYCODONE-ACETAMINOPHEN 5-325 MG TABLET PO PRN ×3 (01:52→09:16)
[2018-07-25 05:04] LABS: HEMOGLOBIN 9.1 g/dL (12.0-15.5); MEAN CORPUSCULAR HEMOGLOBIN 31.8 pg (27.0-33.4); MEAN CORPUSCULAR HGB CONC 33.9 g/dL (32.0-36.0); MEAN CORPUSCULAR VOLUME 94 fl (80-97); PLATELET COUNT 148 10^3/uL (150-450); RED BLOOD COUNT 2.87 10^6/uL (3.72-5.28); RED CELL DISTRIBUTION WIDTH 13.4 % (11.5-14.0); WHITE BLOOD COUNT 9.9 10^3/uL (4.0-10.5)
[2018-07-25 05:28] LABS: ANION GAP 8 (5-19); BLOOD UREA NITROGEN 18 mg/dL (7-20); CALCIUM 8.3 mg/dL (8.4-10.2); CARBON DIOXIDE 24 mmol/L (22-30); CHLORIDE 104 mmol/L (98-107); GLUCOSE 171 mg/dL (75-110); POTASSIUM 3.7 mmol/L (3.6-5.0); SODIUM 136.1 mmol/L (137-145)
[2018-07-25] MEDS: BUPROPION HCL 100 MG TABLET PO SCH ×3 (06:00→21:40)
[2018-07-25] MEDS ORDERED: IBUPROFEN 800 MG in NORMAL SALINE 250 ML IV SCH (06:00)
[2018-07-25] MEDS: LANSOPRAZOLE 30 MG TAB.RAP.DR PO SCH (06:01)
[2018-07-25] MEDS: LEVOTHYROXINE SODIUM 0.075 MG TABLET PO SCH (09:15)
[2018-07-25] MEDS: MULTIVITAMIN TABLET PO SCH (09:15)
[2018-07-25] MEDS: SENNOSIDES/DOCUSATE 8.6-50 MG 1 EACH TABLET PO SCH ×2 (09:15→17:36)
[2018-07-25] MEDS: PREGABALIN 75 MG CAPSULE PO SCH ×2 (09:15→17:36)
[2018-07-25] MEDS: VENLAFAXINE HCL 75 MG CAP.SR.24H PO SCH ×2 (09:15→21:40)
[2018-07-25] MEDS ORDERED: LANSOPRAZOLE 15 MG TAB.RAP.DR PO PRN (09:30)
[2018-07-25] MEDS ORDERED: IBUPROFEN 800 MG in NORMAL SALINE 250 ML IV PRN (09:30)
[2018-07-25] MEDS ORDERED: BUPIVACAINE INJ/PF LIPOSOME/PF 266 MG/20 ML SDV INJ PRN (09:30)
[2018-07-25] MEDS ORDERED: OXYCODONE HCL SR 10 MG TABLET PO PRN (09:30)
[2018-07-25] MEDS ORDERED: (PENDING PHARMACY ID) (Omeprazole Magnesium [Prilosec Otc] 40 MG) PO SCH (10:00)
[2018-07-25] MEDS ORDERED: (PENDING PHARMACY ID) (Rosuvastatin Calcium [Crestor] 40 MG) PO SCH (10:00)
[2018-07-25] MEDS ORDERED: TOPIRAMATE 100 MG TABLET PO SCH (10:00)
[2018-07-25] MEDS ORDERED: BUPROPION HCL 300 MG PO SCH (10:00)
[2018-07-25] MEDS: IBUPROFEN 800 MG in NORMAL SALINE 250 ML IV SCH ×2 (14:00→21:41)
--- NOTE | 2018-07-25 15:22 | PDOC PROGRESS REPORT ---
Subjective Progress Note for:: 07/25/18 Subjective:: Patient laying in bed having lunch. Complaining of this postsurgical pain. Denies any shortness of breath or any other issues overnight. Reason For Visit: LEFT TOTAL KNEE ARTHROPLASTY Physical Exam Vital Signs: Temp Pulse Resp BP Pulse Ox 37.0 C 89 18 149/78 H 98 07/25/18 13:00 07/25/18 13:00 07/25/18 13:00 07/25/18 13:00 07/25/18 13:00 Intake & Output 07/24/18 07/25/18 07/26/18 06:59 06:59 06:59 Intake Total 0 3174 Output Total 1170 Balance 0 2004 Weight 102.06 kg 102.1 kg General appearance: PRESENT: no acute distress Head exam: PRESENT: atraumatic, normocephalic Respiratory exam: PRESENT: symmetrical, unlabored. ABSENT: tachypnea Pulses: PRESENT: normal dorsalis pedis pul Vascular exam: PRESENT: normal capillary refill Neurological exam: PRESENT: alert, awake, oriented to person, oriented to place, oriented to time Skin exam: ABSENT: erythema, rash Adult Front & Back Image: 1 - Dressing is dry clean and intact. Soft calf. -10 degrees of extension to about 60 degrees of flexion. Neurovascular intact distally. Results Laboratory Results: 07/25/18 04:35 07/25/18 04:35 07/25/18 07/25/18 04:35 04:35 WBC 9.9 RBC 2.87 L Hgb 9.1 L Hct 27.0 L MCV 94 MCH 31.8 MCHC 33.9 RDW 13.4 Plt Count 148 L Sodium 136.1 L Potassium 3.7 Chloride 104 Carbon Dioxide 24 Anion Gap 8 BUN 18 Creatinine 0.79 Est GFR ( Amer) > 60 Est GFR (Non-Af Amer) > 60 Glucose 171 H Calcium 8.3 L Impressions: Knee X-Ray 07/24/18 09:55 IMPRESSION: SATISFACTORY POSTOPERATIVE left KNEE. Status: Image reviewed by me Assessment & Plan - Diagnosis (1) Status post knee replacement Qualifiers: Laterality: left Qualified Code(s): Z96.652 - Presence of left artificial knee joint Is this a current diagnosis for this admission?: Yes Plan: Patient is a 72-year-old female POD #1 from left total knee arthroplasty. Continue physical therapy Continue pain control Continue DVT prophylaxis Due to the patient's pain level and lack of progress with therapy and I anticipate patient will be set up with skilled rehab.
[2018-07-25] MEDS: OXYCODONE HCL SR 10 MG TABLET PO SCH ×2 (15:28→21:40)
[2018-07-25] MEDS: RIVAROXABAN 10 MG TABLET PO SCH (17:36)
[2018-07-25] MEDS: MONTELUKAST SODIUM 10 MG TABLET PO SCH (17:36)
[2018-07-25] MEDS: ATORVASTATIN CALCIUM 80 MG TABLET PO SCH (21:40)
[2018-07-25] MEDS: TOPIRAMATE 100 MG TABLET PO SCH (21:41)
[2018-07-26] MEDS: IBUPROFEN 800 MG in NORMAL SALINE 250 ML IV SCH ×3 (05:05→23:10)
[2018-07-26] MEDS: LANSOPRAZOLE 30 MG TAB.RAP.DR PO SCH (05:05)
[2018-07-26] MEDS: BUPROPION HCL 100 MG TABLET PO SCH ×3 (05:05→23:12)
[2018-07-26 07:20] LABS: HEMATOCRIT 27.1 % (36.0-47.0); MEAN CORPUSCULAR HEMOGLOBIN 31.4 pg (27.0-33.4); MEAN CORPUSCULAR HGB CONC 33.3 g/dL (32.0-36.0); MEAN CORPUSCULAR VOLUME 94 fl (80-97); PLATELET COUNT 131 10^3/uL (150-450); RED BLOOD COUNT 2.88 10^6/uL (3.72-5.28); RED CELL DISTRIBUTION WIDTH 14.2 % (11.5-14.0)
[2018-07-26] MEDS: MULTIVITAMIN TABLET PO SCH (09:43)
[2018-07-26] MEDS: SENNOSIDES/DOCUSATE 8.6-50 MG 1 EACH TABLET PO SCH ×2 (09:43→17:44)
[2018-07-26] MEDS: OXYCODONE HCL SR 10 MG TABLET PO SCH ×2 (09:43→23:11)
[2018-07-26] MEDS: LEVOTHYROXINE SODIUM 0.075 MG TABLET PO SCH (09:43)
[2018-07-26] MEDS: PREGABALIN 75 MG CAPSULE PO SCH ×2 (09:44→17:44)
[2018-07-26] MEDS: VENLAFAXINE HCL 75 MG CAP.SR.24H PO SCH ×2 (09:44→23:11)
--- NOTE | 2018-07-26 15:10 | PDOC PROGRESS REPORT ---
Subjective Progress Note for:: 07/26/18 Subjective:: Patient lying in bed comfortably. Patient states her pain has significantly improved since the change of medication yesterday. Denies fever chills sweats. She has been able to ambulate approximately 80 feet with physical therapy. Reason For Visit: LEFT TOTAL KNEE ARTHROPLASTY Physical Exam Vital Signs: Temp Pulse Resp BP Pulse Ox 98.4 F 91 14 112/54 L 97 07/26/18 11:44 07/26/18 11:44 07/26/18 11:44 07/26/18 11:44 07/26/18 11:44 Intake & Output 07/25/18 07/26/18 07/27/18 06:59 06:59 06:59 Intake Total 3174 2435 250 Output Total 1170 2300 Balance 2003 135 250 Weight 102.1 kg 102.9 kg Musculoskeletal exam: PRESENT: other - Left lower extremity: Dressing change today. Mild blood-tinged distally. Moderate swelling. No erythema. Calf nontender. Negative Homans. Intact plantar flexion/dorsiflexion. Results Laboratory Results: 07/26/18 06:51 07/25/18 04:35 07/26/18 06:51 WBC 11.0 H RBC 2.88 L Hgb 9.0 L Hct 27.1 L MCV 94 MCH 31.4 MCHC 33.3 RDW 14.2 H Plt Count 131 L Impressions: Knee X-Ray 07/24/18 09:55 IMPRESSION: SATISFACTORY POSTOPERATIVE left KNEE. Assessment & Plan - Diagnosis (1) Total knee replacement status Qualifiers: Laterality: right Qualified Code(s): Z96.651 - Presence of right artificial knee joint Is this a current diagnosis for this admission?: Yes Plan: Status post left total knee arthroplasty 1. Physical therapy as per protocol 2. Continue current pain regimen 3. Xarelto for DVT prophylaxis 4. Patient will [facility] for [facility] once set up by discharge planning
[2018-07-26] MEDS: MONTELUKAST SODIUM 10 MG TABLET PO SCH (17:44)
[2018-07-26] MEDS: RIVAROXABAN 10 MG TABLET PO SCH (17:44)
[2018-07-26] MEDS: ATORVASTATIN CALCIUM 80 MG TABLET PO SCH (23:11)
[2018-07-26] MEDS: TOPIRAMATE 100 MG TABLET PO SCH (23:12)
[2018-07-27 05:26] LABS: HEMATOCRIT 25.2 % (36.0-47.0); HEMOGLOBIN 8.4 g/dL (12.0-15.5); MEAN CORPUSCULAR HEMOGLOBIN 31.4 pg (27.0-33.4); MEAN CORPUSCULAR HGB CONC 33.1 g/dL (32.0-36.0); MEAN CORPUSCULAR VOLUME 95 fl (80-97); PLATELET COUNT 148 10^3/uL (150-450); RED BLOOD COUNT 2.66 10^6/uL (3.72-5.28); WHITE BLOOD COUNT 7.7 10^3/uL (4.0-10.5)
[2018-07-27] MEDS: BUPROPION HCL 100 MG TABLET PO SCH ×3 (06:02→22:15)
[2018-07-27] MEDS: IBUPROFEN 800 MG in NORMAL SALINE 250 ML IV SCH (06:02)
[2018-07-27] MEDS: LANSOPRAZOLE 30 MG TAB.RAP.DR PO SCH (06:02)
[2018-07-27] MEDS: OXYCODONE-ACETAMINOPHEN 5-325 MG TABLET PO PRN ×4 (08:38→20:44)
[2018-07-27] MEDS: VENLAFAXINE HCL 75 MG CAP.SR.24H PO SCH ×2 (10:16→22:15)
[2018-07-27] MEDS: SENNOSIDES/DOCUSATE 8.6-50 MG 1 EACH TABLET PO SCH ×2 (10:16→17:58)
[2018-07-27] MEDS: MULTIVITAMIN TABLET PO SCH (10:16)
[2018-07-27] MEDS: PREGABALIN 75 MG CAPSULE PO SCH ×2 (10:17→17:58)
[2018-07-27] MEDS: LEVOTHYROXINE SODIUM 0.075 MG TABLET PO SCH (10:17)
--- NOTE | 2018-07-27 13:58 | PDOC PROGRESS REPORT ---
Subjective Progress Note for:: 07/27/18 Subjective:: Patient lying in bed comfortably. Patient states her pain has significantly improved since the change of medication yesterday. Denies fever chills sweats. She has been able to ambulate approximately 80 feet with physical therapy. Reason For Visit: LEFT TOTAL KNEE ARTHROPLASTY Physical Exam Vital Signs: Temp Pulse Resp BP Pulse Ox 99.1 F 98 17 119/99 H 99 07/27/18 11:26 07/27/18 11:26 07/27/18 11:26 07/27/18 11:26 07/27/18 11:26 Intake & Output 07/26/18 07/27/18 07/28/18 06:59 06:59 06:59 Intake Total 2435 1789 Output Total 2300 2200 Balance 135 -411 Weight 102.9 kg 103.8 kg Musculoskeletal exam: PRESENT: other - Left knee: Dressing intact. Small blood spotting distally which is dry no change. Moderate effusion. No calf tenderness. Negative Homans. Intact plantar flexion/dorsiflexion. Dorsalis pedis pulse 2+. Results Laboratory Results: 07/27/18 04:49 07/25/18 04:35 07/27/18 04:49 WBC 7.7 RBC 2.66 L Hgb 8.4 L Hct 25.2 L MCV 95 MCH 31.4 MCHC 33.1 RDW 14.0 Plt Count 148 L Impressions: Knee X-Ray 07/24/18 09:55 IMPRESSION: SATISFACTORY POSTOPERATIVE left KNEE. Assessment & Plan - Diagnosis (1) Total knee replacement status Qualifiers: Laterality: right Qualified Code(s): Z96.651 - Presence of right artificial knee joint Is this a current diagnosis for this admission?: Yes Plan: Status post left total knee arthroplasty 1. Physical therapy as per protocol 2. Continue current pain regimen 3. Xarelto for DVT prophylaxis 4. Patient will require [facility] facility for rehabilitation once set up by discharge planning
[2018-07-27] MEDS: RIVAROXABAN 10 MG TABLET PO SCH (16:49)
[2018-07-27] MEDS: MONTELUKAST SODIUM 10 MG TABLET PO SCH (17:58)
[2018-07-27] MEDS: ATORVASTATIN CALCIUM 80 MG TABLET PO SCH (22:15)
[2018-07-27] MEDS: TOPIRAMATE 100 MG TABLET PO SCH (22:15)
[2018-07-28] MEDS: OXYCODONE-ACETAMINOPHEN 5-325 MG TABLET PO PRN ×3 (01:41→14:35)
[2018-07-28] MEDS: BUPROPION HCL 100 MG TABLET PO SCH (05:52)
[2018-07-28] MEDS: LANSOPRAZOLE 30 MG TAB.RAP.DR PO SCH (05:52)
[2018-07-28] MEDS: SENNOSIDES/DOCUSATE 8.6-50 MG 1 EACH TABLET PO SCH (09:25)
[2018-07-28] MEDS: PREGABALIN 75 MG CAPSULE PO SCH (09:25)
[2018-07-28] MEDS: MULTIVITAMIN TABLET PO SCH (09:25)
[2018-07-28] MEDS: LEVOTHYROXINE SODIUM 0.075 MG TABLET PO SCH (09:26)
[2018-07-28] MEDS: VENLAFAXINE HCL 75 MG CAP.SR.24H PO SCH (09:26)
[2018-07-28] MEDS ORDERED: MELOXICAM 15 MG TABLET PO SCH (10:00)
--- NOTE | 2018-07-28 12:50 | PDOC TRANSFER SUMMARY ---
General - Admit/Disc Date/PCP Admission Date/Primary Care Provider: 07/24/18 05:21 ERROL MILLIGAN MD Discharge Date: 07/28/18 - Discharge Diagnosis (1) Status post knee replacement Is this a current diagnosis for this admission?: Yes - Additional Information Resuscitation Status: Full Code Discharge Diet: As Tolerated Discharge Activity: No Driving, Keep Legs Elevated Home Medications: Levothyroxine Sodium [Synthroid 0.075 mg Tablet] 75 mcg PO QAM 07/30/11 Montelukast Sodium [Singulair 10 mg Tablet] 10 mg PO QPM 07/30/11 Topiramate [Topamax 100 mg Tablet] 200 mg PO QPM 07/30/11 Meloxicam [Mobic 15 mg Tablet] 15 mg PO DAILY 07/02/16 Omeprazole Magnesium [Prilosec Otc] 40 mg PO DAILY 07/02/16 Docusate Sodium [Stool Softener] 1 cap PO BID 05/08/18 Bupropion HCl [Wellbutrin Xl 150 mg 24hr Tablet] 300 mg PO DAILY 05/15/18 Rosuvastatin Calcium [Crestor] 40 mg PO QPM 05/15/18 Venlafaxine HCl [Effexor Xr] 150 mg PO Q12 05/19/18 Tramadol HCl [Ultram 50 mg Tablet] 50 mg PO PRN PRN 07/02/18 Multivitamin [Chewable-Jaz] 1 each PO BID 07/24/18 History of Present Illness Admission Date/PCP: 07/24/18 05:21 ERROL MILLIGAN MD History of Present Illness: NILSA MCDUFFIE is a 72 year old female who on 07/24/2018 underwent left total knee arthroplasty. 3 months ago patient also underwent right total knee arthroplasty. No issues during hospital stay but patient not progressing with physical therapy as expected and therefore recommendation was to be transferred to rehab facility for further care Hospital Course Hospital Course: 07/24/2018 patient underwent left total knee arthroplasty with no complication or issues. From 07/25/18 to 07/28/18 patient had no fevers and vital signs were stable. Her pain slowly was adequately controlled and the patient dressing was changed and the incision was clean dry and intact with no signs of infection. Unfortunately patient's progress was very slow and required assistance and will require long- term therapy at a intermediate facility prior to going home. Physical Exam Vital Signs: Temp Pulse Resp BP Pulse Ox 36.7 C 80 19 112/64 100 07/28/18 09:00 07/28/18 09:00 07/28/18 09:00 07/28/18 09:00 07/28/18 09:00 Intake & Output 07/27/18 07/28/18 07/29/18 06:59 06:59 06:59 Intake Total 1789 1380 Output Total 2200 1300 Balance -411 80 Weight 103.8 kg 103.8 kg General appearance: PRESENT: no acute distress Head exam: PRESENT: atraumatic, normocephalic Eye exam: PRESENT: EOMI Pulses: PRESENT: +2 pedal pulses bilateral Neurological exam: PRESENT: alert, awake, oriented to person, oriented to place, oriented to time, oriented to situation Psychiatric exam: PRESENT: appropriate affect, normal mood Skin exam: PRESENT: intact. ABSENT: erythema Adult Front & Back Image: 1 - Left knee incision is dry clean and intact. [place] are intact. No evidence of infection. Dressing was changed and a new OpSite dressing was applied. Range of motion is -10 degrees to about 80 degrees of flexion. Stable to varus and valgus. Negative Homans sign with soft calf. Neurovascular intact distally. Results Laboratory Results: 07/27/18 04:49 07/25/18 04:35 Impressions: Knee X-Ray 07/24/18 09:55 IMPRESSION: SATISFACTORY POSTOPERATIVE left KNEE. Status: Image reviewed by me Transfer Plan - Disposition Transfer Plan: Patient will be transferred to [facility] for further rehab. Qualifiers - * PATIENT BEING DISCHARGED WITH ANY OF THE FOLLOWING DIAGNOSIS: No VTE patient discharged on overlapping Therapy?: Yes Plan Discharge Plan: 72-year-old female 3 months out from right total knee arthroplasty and 5 days out from left total knee arthroplasty. Patient did very well and now will be discharged to [facility]. She will follow-up in 2 weeks and will participate with therapy.
[2018-07-28 12:55] VITALS: BP 123/61
== END 2018-07-28 15:24 | DRG 470 ==
LOC: INOR 05:21 → 4N 14:13
PROVIDERS: ADMIT Orthopaedic Surgery; ATTEND Orthopaedic Surgery
PROC: 0SRD0J9 Replacement of Left Knee Joint with Synthetic Substitute, Cemented, Open Approach (ICD-10-PCS; principal; 2018-07-24 07:30)
DX: M17.12 Unilateral primary osteoarthritis, left knee (principal); E78.5 Hyperlipidemia, unspecified; J45.909 Unspecified asthma, uncomplicated; F32.9 Major depressive disorder, single episode, unspecified; Z96.651 Presence of right artificial knee joint; Z79.01 Long term (current) use of anticoagulants; Z79.891 Long term (current) use of opiate analgesic; Z79.51 Long term (current) use of inhaled steroids; Z79.899 Other long term (current) drug therapy; Z98.84 Bariatric surgery status
CPT/HCPCS: 01402; 36415; 80048; 85027; 88305; 88311; C1713; C1776; C9290; J0131; J0690; J1100; J1741; J2001; J2250; J2405; J2704; J3010; J3370; J3490; J7050; J7060

== ENCOUNTER → 2018-09-10 | Outpatient (CLI) | payer MEDICARE, OTHER ==
[2018-09-10 08:42] LABS: ABSOLUTE EOSINOPHILS # (AUTO) 0.2 10^3/uL (0.0-0.6); ABSOLUTE LYMPHOCYTES (AUTO) 1.5 10^3/uL (0.5-4.7); ABSOLUTE MONOCYTES (AUTO) 0.5 10^3/uL (0.1-1.4); ABSOLUTE NEUT (AUTO) 3.7 10^3/uL (1.7-8.2); BASOPHILS % (AUTO) 0.8 % (0-2); EOSINOPHILS % (AUTO) 2.6 % (0-6); HEMATOCRIT 32.2 % (36.0-47.0); HEMOGLOBIN 10.7 g/dL (12.0-15.5); LYMPHOCYTES % (AUTO) 25.3 % (13-45); MEAN CORPUSCULAR HEMOGLOBIN 31.3 pg (27.0-33.4); MEAN CORPUSCULAR HGB CONC 33.3 g/dL (32.0-36.0); MEAN CORPUSCULAR VOLUME 94 fl (80-97); MONOCYTES % (AUTO) 8.8 % (3-13); PLATELET COUNT 254 10^3/uL (150-450); RED BLOOD COUNT 3.43 10^6/uL (3.72-5.28); RED CELL DISTRIBUTION WIDTH 14.8 % (11.5-14.0); SEGMENTED NEUTROPHILS % (AUTO) 62.5 % (42-78); TOTAL CELLS COUNTED % (AUTO) 100 %; WHITE BLOOD COUNT 5.9 10^3/uL (4.0-10.5)
[2018-09-10 09:17] LABS: ALANINE AMINOTRANSFERASE 26 U/L (9-52); ALBUMIN 3.7 g/dL (3.5-5.0); ALKALINE PHOSPHATASE 95 U/L (38-126); ANION GAP 8 (5-19); ASPARTATE AMINO TRANSFERASE 21 U/L (14-36); BILIRUBIN,DIRECT 0.2 mg/dL (0.0-0.4); BILIRUBIN,TOTAL 0.2 mg/dL (0.2-1.3); BLOOD UREA NITROGEN 21 mg/dL (7-20); CALCIUM 9.4 mg/dL (8.4-10.2); CARBON DIOXIDE 26 mmol/L (22-30); CHLORIDE 109 mmol/L (98-107); GLUCOSE 83 mg/dL (75-110); POTASSIUM 4.5 mmol/L (3.6-5.0); TOTAL PROTEIN 6.5 g/dL (6.3-8.2); TRIGLYCERIDES 114 mg/dL (<150)
[2018-09-10 09:28] LABS: DIRECT LDL 76 mg/dL (<100)
== END ==
LOC: OD 07:36
PROVIDERS: ATTEND Family Medicine Geriatric Medicine
DX: I10 Essential (primary) hypertension (principal); E78.5 Hyperlipidemia, unspecified; E03.9 Hypothyroidism, unspecified; Z79.899 Other long term (current) drug therapy
CPT/HCPCS: 36415; 80053; 80061; 84443; 85025

== ENCOUNTER → 2018-10-22 | Outpatient (CLI) | payer MEDICARE, OTHER ==
[2018-10-22 09:00] LABS: ABSOLUTE EOSINOPHILS # (AUTO) 0.1 10^3/uL (0.0-0.6); ABSOLUTE LYMPHOCYTES (AUTO) 1.1 10^3/uL (0.5-4.7); ABSOLUTE MONOCYTES (AUTO) 0.6 10^3/uL (0.1-1.4); ABSOLUTE NEUT (AUTO) 3.4 10^3/uL (1.7-8.2); BASOPHILS % (AUTO) 0.5 % (0-2); HEMATOCRIT 33.6 % (36.0-47.0); HEMOGLOBIN 10.9 g/dL (12.0-15.5); LYMPHOCYTES % (AUTO) 21.4 % (13-45); MEAN CORPUSCULAR HEMOGLOBIN 30.8 pg (27.0-33.4); MEAN CORPUSCULAR HGB CONC 32.4 g/dL (32.0-36.0); MEAN CORPUSCULAR VOLUME 95 fl (80-97); MONOCYTES % (AUTO) 11.6 % (3-13); PLATELET COUNT 166 10^3/uL (150-450); RED BLOOD COUNT 3.53 10^6/uL (3.72-5.28); RED CELL DISTRIBUTION WIDTH 14.8 % (11.5-14.0); SEGMENTED NEUTROPHILS % (AUTO) 64.5 % (42-78); TOTAL CELLS COUNTED % (AUTO) 100 %; WHITE BLOOD COUNT 5.2 10^3/uL (4.0-10.5)
== END ==
LOC: OD 08:25
PROVIDERS: ATTEND Family Medicine Geriatric Medicine
DX: E03.9 Hypothyroidism, unspecified (principal); J30.9 Allergic rhinitis, unspecified; Z79.899 Other long term (current) drug therapy
CPT/HCPCS: 36415; 84443; 85025

== ENCOUNTER → 2019-01-19 | Outpatient (CLI) | payer MEDICARE, OTHER ==
[2019-01-19 07:34] LABS: ABSOLUTE EOSINOPHILS # (AUTO) 0.2 10^3/uL (0.0-0.6); ABSOLUTE LYMPHOCYTES (AUTO) 1.4 10^3/uL (0.5-4.7); ABSOLUTE MONOCYTES (AUTO) 0.6 10^3/uL (0.1-1.4); ABSOLUTE NEUT (AUTO) 2.8 10^3/uL (1.7-8.2); BASOPHILS % (AUTO) 0.7 % (0-2); EOSINOPHILS % (AUTO) 4.7 % (0-6); HEMATOCRIT 31.5 % (36.0-47.0); HEMOGLOBIN 10.4 g/dL (12.0-15.5); LYMPHOCYTES % (AUTO) 28.4 % (13-45); MEAN CORPUSCULAR HEMOGLOBIN 31.4 pg (27.0-33.4); MEAN CORPUSCULAR HGB CONC 33.1 g/dL (32.0-36.0); MEAN CORPUSCULAR VOLUME 95 fl (80-97); MONOCYTES % (AUTO) 11.1 % (3-13); PLATELET COUNT 202 10^3/uL (150-450); RED BLOOD COUNT 3.32 10^6/uL (3.72-5.28); RED CELL DISTRIBUTION WIDTH 14.2 % (11.5-14.0); SEGMENTED NEUTROPHILS % (AUTO) 55.1 % (42-78); TOTAL CELLS COUNTED % (AUTO) 100 %; WHITE BLOOD COUNT 5.1 10^3/uL (4.0-10.5)
[2019-01-19 07:55] LABS: ANION GAP 6 (5-19); BLOOD UREA NITROGEN 22 mg/dL (7-20); CALCIUM 9.1 mg/dL (8.4-10.2); CARBON DIOXIDE 28 mmol/L (22-30); CHLORIDE 107 mmol/L (98-107); CHOLESTEROL 196.14 mg/dL (0-200); GLUCOSE 81 mg/dL (75-110); TRIGLYCERIDES 78 mg/dL (<150)
[2019-01-19 08:05] LABS: DIRECT LDL 90 mg/dL (<100)
== END ==
LOC: OD 07:05
PROVIDERS: ATTEND Family Medicine Geriatric Medicine
DX: D50.9 Iron deficiency anemia, unspecified (principal); N18.3 Chronic kidney disease, stage 3 (moderate); E78.5 Hyperlipidemia, unspecified; Z79.899 Other long term (current) drug therapy
CPT/HCPCS: 36415; 80048; 80061; 84460; 85025

== ENCOUNTER → 2019-02-17 | Outpatient (CLI) | payer MEDICARE, OTHER ==
--- NOTE | 2019-02-17 11:09 | RADIOLOGY REPORT (SQ) ---
EXAM DESCRIPTION: SACRUM AND COCCYX COMPLETED DATE/TIME: 02/17/2019 11:00 am REASON FOR STUDY: M54.9 DORSALGIA, UNSPECIFIED M54.9 DORSALGIA, UNSPECIFIED M25.551 PAIN IN RIGHT HIP COMPARISON: None. NUMBER OF VIEWS: Three views. TECHNIQUE: AP, lateral, and tilt views of the sacrum and coccyx. LIMITATIONS: None. FINDINGS: MINERALIZATION: Normal. BONES: No acute fracture or dislocation. No worrisome bone lesions. SOFT TISSUES: No soft tissue swelling. No foreign body. OTHER: Degenerative changes at L5-S1. IMPRESSION: NEGATIVE STUDY OF THE SACRUM AND COCCYX. TECHNICAL DOCUMENTATION: JOB ID: [id number] [employer]- All Rights Reserved Reading location - IP/workstation name: [email or web address]
--- NOTE | 2019-02-17 11:10 | RADIOLOGY REPORT (SQ) ---
EXAM DESCRIPTION: L SPINE WHOLE COMPLETED DATE/TIME: 02/17/2019 11:00 am REASON FOR STUDY: M54.9 DORSALGIA, UNSPECIFIED M54.9 DORSALGIA, UNSPECIFIED M25.551 PAIN IN RIGHT HIP COMPARISON: 08/08/2015 NUMBER OF VIEWS: Five views including obliques. TECHNIQUE: AP, lateral, oblique, and sacral radiographic images acquired of the lumbar spine. LIMITATIONS: None. FINDINGS: MINERALIZATION: Normal. SEGMENTATION: Normal. No transitional anatomy. ALIGNMENT: Normal. VERTEBRAE: Maintain height. No focal lesions. DISCS: Multilevel disc space narrowing most marked at L5-S1. POSTERIOR ELEMENTS: Pedicles and facets are intact. No pars defect or posterior arch defects. Facet arthropathy is present. HARDWARE: None in the spine. PARASPINAL SOFT TISSUES: Normal. PELVIS: Intact as visualized. No fractures or worrisome bone lesions. SI joints intact. OTHER: No other significant finding. IMPRESSION: SPONDYLOSIS WITHOUT BONE LESION OR FRACTURE. TECHNICAL DOCUMENTATION: JOB ID: [id number] [employer]- All Rights Reserved Reading location - IP/workstation name: [email or web address]
--- NOTE | 2019-02-17 11:11 | RADIOLOGY REPORT (SQ) ---
EXAM DESCRIPTION: HIP BILATERAL COMPLETED DATE/TIME: 02/17/2019 11:00 am REASON FOR STUDY: M54.9 DORSALGIA, UNSPECIFIED M54.9 DORSALGIA, UNSPECIFIED M25.551 PAIN IN RIGHT HIP COMPARISON: None. NUMBER OF VIEWS: Two views TECHNIQUE: AP pelvis and additional frog-leg view of both hips. LIMITATIONS: None. FINDINGS: MINERALIZATION: Normal. HIPS: Mild asymmetric joint space narrowing in the left hip. There is bilateral subchondral sclerosi s. No acute fracture or dislocation. PELVIS AND SACRUM: No acute fracture or dislocation. No worrisome bone lesions. PUBIS AND ISCHIUM: No acute fracture. LOWER LUMBAR SPINE: No significant findings as visualized. SOFT TISSUES: No findings. OTHER: No other significant finding. IMPRESSION: No acute findings. Mild asymmetric joint space narrowing on the left. TECHNICAL DOCUMENTATION: JOB ID: [id number] [employer]- All Rights Reserved Reading location - IP/workstation name: [email or web address]
== END ==
LOC: RAD 10:00
PROVIDERS: ATTEND Family Medicine Geriatric Medicine
DX: M25.551 Pain in right hip (principal); M54.9 Dorsalgia, unspecified; M47.896 Other spondylosis, lumbar region
CPT/HCPCS: 72110; 72220; 73522

== ENCOUNTER → 2019-03-23 | Outpatient (CLI) | payer MEDICARE, OTHER ==
[2019-03-23 08:32] LABS: ABSOLUTE EOSINOPHILS # (AUTO) 0.2 10^3/uL (0.0-0.6); ABSOLUTE LYMPHOCYTES (AUTO) 1.4 10^3/uL (0.5-4.7); ABSOLUTE MONOCYTES (AUTO) 0.5 10^3/uL (0.1-1.4); ABSOLUTE NEUT (AUTO) 2.5 10^3/uL (1.7-8.2); EOSINOPHILS % (AUTO) 3.8 % (0-6); HEMOGLOBIN 10.8 g/dL (12.0-15.5); LYMPHOCYTES % (AUTO) 30.5 % (13-45); MEAN CORPUSCULAR HGB CONC 32.9 g/dL (32.0-36.0); MEAN CORPUSCULAR VOLUME 94 fl (80-97); MONOCYTES % (AUTO) 11.1 % (3-13); PLATELET COUNT 196 10^3/uL (150-450); RED CELL DISTRIBUTION WIDTH 13.6 % (11.5-14.0); SEGMENTED NEUTROPHILS % (AUTO) 53.6 % (42-78); TOTAL CELLS COUNTED % (AUTO) 100 %; WHITE BLOOD COUNT 4.7 10^3/uL (4.0-10.5)
== END ==
LOC: OD 07:06
PROVIDERS: ATTEND Family Medicine Geriatric Medicine
DX: E03.9 Hypothyroidism, unspecified (principal); D64.9 Anemia, unspecified; Z79.899 Other long term (current) drug therapy
CPT/HCPCS: 36415; 84443; 85025

== ENCOUNTER → 2019-05-11 | Outpatient (CLI) | payer MEDICARE, OTHER ==
--- NOTE | 2019-05-11 13:02 | RADIOLOGY REPORT (SQ) ---
EXAM DESCRIPTION: MRI CERVICAL SPINE WITHOUT COMPLETED DATE/TIME: 05/11/2019 9:57 am REASON FOR STUDY: M54.12 RADICULOPATHY, CERVICAL REGION M54.12 RADICULOPATHY, CERVICAL REGION COMPARISON: None. TECHNIQUE: Sagittal and Axial imaging includes T1, T2, STIR and gradient echo sequences. LIMITATIONS: Motion. Dental artifact. FINDINGS: ALIGNMENT: Reversal of the lordotic curve. Slight anterolisthesis of C3 relative to C4. VERTEBRAE: Intact. BONE MARROW: Normal. No marrow replacement or reactive changes. DISCS: Desiccation multiple levels. HARDWARE: None in the spine. CORD AND BASE OF BRAIN: Normal in size and signal intensity. SOFT TISSUES: No soft tissue masses. C1-C2: No significant spinal stenosis. C2-C3: No significant spinal stenosis or exit foraminal stenosis. C3-C4: Moderate neural foraminal narrowing bilaterally due to uncovertebral arthropathy. C4-C5: Mild spinal stenosis due to disc bulge and uncovertebral arthropathy. Severe neural foraminal narrowing bilaterally. C5-C6: Mild spinal stenosis. Severe neural foraminal narrowing bilaterally. C6-C7: Mild spinal stenosis. Severe neural foraminal narrowing bilaterally. C7-T1: No significant stenosis. UPPER THORACIC: Incompletely imaged. No significant spinal stenosis or exit foraminal stenosis. OTHER: No other significant finding. IMPRESSION: Limitations due to artifact. Mild spinal stenosis and malalignment. Severe neural fora eddie stenosis as described above. TECHNICAL DOCUMENTATION: JOB ID: [id number] [email or web address]- All Rights Reserved Reading location - IP/workstation name: [email or web address]
== END ==
LOC: RAD 09:09
PROVIDERS: ATTEND Family Medicine
DX: M50.121 Cervical disc disorder at C4-C5 level with radiculopathy (principal)
CPT/HCPCS: 72141

== ENCOUNTER → 2019-06-24 | Outpatient (CLI) | payer MEDICARE, OTHER ==
[2019-06-24 08:25] LABS: ABSOLUTE EOSINOPHILS # (AUTO) 0.1 10^3/uL (0.0-0.6); ABSOLUTE LYMPHOCYTES (AUTO) 1.3 10^3/uL (0.5-4.7); ABSOLUTE MONOCYTES (AUTO) 0.6 10^3/uL (0.1-1.4); ABSOLUTE NEUT (AUTO) 3.1 10^3/uL (1.7-8.2); BASOPHILS % (AUTO) 0.7 % (0-2); EOSINOPHILS % (AUTO) 1.5 % (0-6); HEMATOCRIT 32.5 % (36.0-47.0); HEMOGLOBIN 10.8 g/dL (12.0-15.5); LYMPHOCYTES % (AUTO) 25.7 % (13-45); MEAN CORPUSCULAR HEMOGLOBIN 31.2 pg (27.0-33.4); MEAN CORPUSCULAR HGB CONC 33.2 g/dL (32.0-36.0); MEAN CORPUSCULAR VOLUME 94 fl (80-97); MONOCYTES % (AUTO) 10.9 % (3-13); PLATELET COUNT 165 10^3/uL (150-450); RED BLOOD COUNT 3.46 10^6/uL (3.72-5.28); RED CELL DISTRIBUTION WIDTH 14.2 % (11.5-14.0); SEGMENTED NEUTROPHILS % (AUTO) 61.2 % (42-78); TOTAL CELLS COUNTED % (AUTO) 100 %
[2019-06-24 08:30] LABS: ANION GAP 7 (5-19); BLOOD UREA NITROGEN 24 mg/dL (7-20); CALCIUM 9.1 mg/dL (8.4-10.2); CARBON DIOXIDE 27 mmol/L (22-30); CHLORIDE 107 mmol/L (98-107); CHOLESTEROL 206.32 mg/dL (0-200); GLUCOSE 77 mg/dL (75-110); POTASSIUM 4.1 mmol/L (3.6-5.0); TRIGLYCERIDES 53 mg/dL (<150)
[2019-06-24 08:41] LABS: DIRECT LDL 75 mg/dL (<100)
== END ==
LOC: OD 07:19
PROVIDERS: ATTEND Family Medicine Geriatric Medicine
DX: E78.5 Hyperlipidemia, unspecified (principal); I10 Essential (primary) hypertension; Z79.899 Other long term (current) drug therapy
CPT/HCPCS: 36415; 80048; 80061; 84460; 85025

== ENCOUNTER → 2019-11-06 | Outpatient (CLI) | payer MEDICARE, OTHER ==
[2019-11-06 08:27] LABS: ABSOLUTE EOSINOPHILS # (AUTO) 0.1 10^3/uL (0.0-0.6); ABSOLUTE LYMPHOCYTES (AUTO) 1.5 10^3/uL (0.5-4.7); ABSOLUTE MONOCYTES (AUTO) 0.6 10^3/uL (0.1-1.4); ABSOLUTE NEUT (AUTO) 2.8 10^3/uL (1.7-8.2); BASOPHILS % (AUTO) 0.4 % (0-2); HEMATOCRIT 32.9 % (36.0-47.0); HEMOGLOBIN 10.9 g/dL (12.0-15.5); LYMPHOCYTES % (AUTO) 29.4 % (13-45); MEAN CORPUSCULAR HEMOGLOBIN 31.3 pg (27.0-33.4); MEAN CORPUSCULAR HGB CONC 33.3 g/dL (32.0-36.0); MEAN CORPUSCULAR VOLUME 94 fl (80-97); MONOCYTES % (AUTO) 11.1 % (3-13); PLATELET COUNT 209 10^3/uL (150-450); RED CELL DISTRIBUTION WIDTH 14.3 % (11.5-14.0); SEGMENTED NEUTROPHILS % (AUTO) 57.1 % (42-78); TOTAL CELLS COUNTED % (AUTO) 100 %
[2019-11-06 08:41] LABS: CHOLESTEROL 173.99 mg/dL (0-200); TRIGLYCERIDES 83 mg/dL (<150)
[2019-11-06 08:54] LABS: DIRECT LDL 64 mg/dL (<100)
== END ==
LOC: OD 07:34
PROVIDERS: ATTEND Family Medicine Geriatric Medicine
DX: E03.9 Hypothyroidism, unspecified (principal); I10 Essential (primary) hypertension; E78.5 Hyperlipidemia, unspecified; D64.9 Anemia, unspecified; Z79.899 Other long term (current) drug therapy
CPT/HCPCS: 36415; 80061; 84443; 84460; 85025

== ENCOUNTER → 2019-11-16 | Outpatient (CLI) | payer MEDICARE, OTHER ==
--- NOTE | 2019-11-16 11:35 | WOMENS IMAGING REPORT ---
EXAM DESCRIPTION: BILAT SCREENING MAMMO W/CAD IMAGES COMPLETED DATE/TIME: 11/16/2019 11:19 am REASON FOR STUDY: Z12.31 SCREENING MAMMO Z12.31 ENCNTR SCREEN MAMMOGRAM FOR MALIGNANT NEOPLASM OF B RE COMPARISON: Multiple since 2008 EXAM PARAMETERS: Standard craniocaudal and mediolateral oblique views of each breast recorded using digital acquisition. Read with the assistance of CAD. [facility] Beaut[employer] Apprentice Version 9.2 LIMITATIONS: None. FINDINGS: No suspicious masses, suspicious calcifications or architectural distortion. No areas of c oncern. IMPRESSION: NEGATIVE MAMMOGRAM. BIRADS 1 BREAST DENSITY: a. The breasts are almost entirely fatty. BIRAD: ASSESSMENT: 1 NEGATIVE RECOMMENDATION: ROUTINE SCREENING COMMENT: The patient has been notified of the results by letter per MQSA requirements. Additional no tification policies are in place for contacting patient with suspicious or incomplete findings. Quality ID #[id number]: The [employer] recommends an annual screening mammogram for women aged 40 years or over. This facility utilizes a reminder system to ensure that all patients receive reminder letters, and/or direct phone calls for appointments. This includes reminders for routine scr eening mammograms, diagnostic mammograms, or other Breast Imaging Interventions when appropriate. Th is patient will be placed in the appropriate reminder system. TECHNICAL DOCUMENTATION: FINDING NUMBER: (1) ASSESSMENT: (1) JOB ID: [id number] [employer]- All Rights Reserved Reading location - IP/workstation name: [email or web address]
== END ==
LOC: WI 10:25
PROVIDERS: ATTEND Family Medicine Geriatric Medicine
DX: Z12.31 Encounter for screening mammogram for malignant neoplasm of breast (principal)
CPT/HCPCS: 77067

== ENCOUNTER → 2020-02-05 | Outpatient (CLI) | payer MEDICARE, OTHER ==
[2020-02-05 11:26] LABS: ABSOLUTE EOSINOPHILS # (AUTO) 0.1 10^3/uL (0.0-0.6); ABSOLUTE LYMPHOCYTES (AUTO) 1.6 10^3/uL (0.5-4.7); ABSOLUTE MONOCYTES (AUTO) 0.6 10^3/uL (0.1-1.4); ABSOLUTE NEUT (AUTO) 3.5 10^3/uL (1.7-8.2); BASOPHILS % (AUTO) 0.7 % (0-2); EOSINOPHILS % (AUTO) 1.3 % (0-6); HEMATOCRIT 33.7 % (36.0-47.0); HEMOGLOBIN 11.2 g/dL (12.0-15.5); MEAN CORPUSCULAR HEMOGLOBIN 31.2 pg (27.0-33.4); MEAN CORPUSCULAR HGB CONC 33.3 g/dL (32.0-36.0); MEAN CORPUSCULAR VOLUME 94 fl (80-97); MONOCYTES % (AUTO) 10.6 % (3-13); PLATELET COUNT 235 10^3/uL (150-450); RED CELL DISTRIBUTION WIDTH 14.3 % (11.5-14.0); SEGMENTED NEUTROPHILS % (AUTO) 60.4 % (42-78); TOTAL CELLS COUNTED % (AUTO) 100 %; WHITE BLOOD COUNT 5.8 10^3/uL (4.0-10.5)
== END ==
LOC: OD 10:39
PROVIDERS: ATTEND Family Medicine Geriatric Medicine
DX: E03.9 Hypothyroidism, unspecified (principal); D64.9 Anemia, unspecified; Z79.899 Other long term (current) drug therapy
CPT/HCPCS: 36415; 84436; 84443; 84479; 85025

== ENCOUNTER → 2020-02-15 | Outpatient (CLI) | payer MEDICARE, OTHER ==
--- NOTE | 2020-02-15 12:57 | RADIOLOGY REPORT (SQ) ---
EXAM DESCRIPTION: BARIUM SWALLOW ESOPHAGUS IMAGES COMPLETED DATE/TIME: 02/15/2020 9:18 am REASON FOR STUDY: GASTRO-ESOPHAGEAL REFLUX DISEASE WITHOUT ESOPHAGITIS K21.9 GASTRO-ESOPHAGEAL REFL UX DISEASE WITHOUT ESOPHAGITIS COMPARISON: None. TECHNIQUE: Under fluoroscopic guidance, patient ingested effervescent granules followed by thick and thin barium. Fluoroscopic spot images and routine radiographic images acquired and stored on PACS. 12 MM BARIUM TABLET GIVEN: Barium tablet passed through the esophagus and into the stomach without de lay. LIMITATIONS: None. FLUOROSCOPY TIME: FLUORO TIME: 3.5 minutes 10 images saved to PACS. FINDINGS: NEUROMUSCULAR COORDINATION OF SWALLOW: Normal. No aspiration. Mild cricopharyngeus hypert rophy. ESOPHAGEAL MOTILITY: Moderate esophageal dysmotility with tertiary contractions in distal esophagus. ESOPHAGEAL MUCOSA: Normal mucosa without masses or ulceration. GASTRO-ESOPHAGEAL JUNCTION: Small hiatal hernia with moderate gastroesophageal reflux/dysmotility. G astric lap band is present. NON-GI TRACT STRUCTURES: No significant finding. OTHER: No other significant finding. IMPRESSION: GASTRIC LAP BAND PRESENT. SMALL HIATAL HERNIA WITH MODERATE GASTROESOPHAGEAL REFLUX/ESO PHAGEAL DYSMOTILITY. RECOMMENDATION: None COMMENT: None Quality ID [id number]: Final reports for procedures using fluoroscopy that document radiation exposure radha yordan, or exposure time and number of fluorographic images (if radiation exposure indices are not avail able) TECHNICAL DOCUMENTATION: JOB ID: [id number] 2010 [employer]- All Rights Reserved Reading location - IP/workstation name: [email or web address] [id number]
== END ==
LOC: RAD 08:17
PROVIDERS: ATTEND Family Medicine Geriatric Medicine
DX: K21.9 Gastro-esophageal reflux disease without esophagitis (principal); K44.9 Diaphragmatic hernia without obstruction or gangrene
CPT/HCPCS: 74220

== ENCOUNTER 2020-03-17 07:00 | Day surgery (SDC) | payer MEDICARE, OTHER ==
[2020-03-14 13:19] LABS: HEMATOCRIT 33.3 % (36.0-47.0); HEMOGLOBIN 11.1 g/dL (12.0-15.5); MEAN CORPUSCULAR HEMOGLOBIN 31.7 pg (27.0-33.4); MEAN CORPUSCULAR HGB CONC 33.3 g/dL (32.0-36.0); MEAN CORPUSCULAR VOLUME 95 fl (80-97); PLATELET COUNT 183 10^3/uL (150-450); RED BLOOD COUNT 3.49 10^6/uL (3.72-5.28); RED CELL DISTRIBUTION WIDTH 15.2 % (11.5-14.0)
[~2020-03-17 07:00] MED LIST changes: +ACETAMINOPHEN 325 MG TABLET PO PRN; -BUPIVACAINE INJ/PF LIPOSOME/PF 266 MG/20 ML SDV INJ PRN; -CEFAZOLIN INJ 1 GM VIAL IV PRN; -IBUPROFEN 800 MG in NORMAL SALINE 250 ML IV PRN; -LANSOPRAZOLE 15 MG TAB.RAP.DR PO PRN; -OXYCODONE HCL SR 10 MG TABLET PO PRN; -VANCOMYCIN HCL 1,000 MG in DEXTROSE 5%-WATER 250 ML IV PRN
[2020-03-17] MEDS ORDERED: PROPOFOL INJ 200 MG/20 ML VIAL IV ONE (07:04)
[2020-03-17] MEDS ORDERED: LIDOCAINE 2% INJ-PF (20 MG/ML) 10 ML AMPUL ONE (07:04)
--- NOTE | 2020-03-17 09:01 | Discharge Summary ---
Discharge Summary (SDC) - Discharge Final Diagnosis: History of colon polyps; normal colonoscopy Date of Surgery: 03/17/20 Discharge Date: 03/17/20 Condition: Good Treatment or Instructions: [place] [id number] POST ENDOSCOPY DISCHARGE INSTRUCTIONS 1. Diet: Start clear liquids that a regular diet as tolerated. 2. Resume all preoperative medications. All oral anticoagulants and aspirins can be resumed 24 hours after procedure. 3. If a polypectomy was performed some bleeding per rectum may occur. This should stop within 3 days. If not, please contact the office. 4. If you had a colonoscopy you may experience some bloating and delayed return of normal bowel function for several days, your regular bowel movement pattern should resume within a week. 5. Please contact [facility] at to make an appoint ment with Dr. Bertrand for 1 to 3 weeks following procedure. 6. If you have any questions or concerns regarding your care,treatment plan or follow up, please contact our office. 7. Per clinical guidelines we recommend you undergo a repeat colonoscopy in 5 years. Referrals: ERROL MILLIGAN MD [Primary Care Provider] - Discharge Diet: As Tolerated Discharge Activity: Activity As Tolerated, No Driving Home Care Assistance: None Needed Report the Following to Your Physician Immediately: Shortness of Breath, Nausea, Vomiting, Increase in Pain, Unusual Bleeding, IV Site Infection Signs
--- NOTE | 2020-03-17 09:07 | Operative Report ---
Operative Report DATE OF SURGERY: 03/17/20 PREOPERATIVE DIAGNOSIS: Personal history of colon polyps POSTOPERATIVE DIAGNOSIS: Normal colonoscopy OPERATION: Total colonoscopy to cecum SURGEON: PAULA POWER ANESTHESIA: LMAC TISSUE REMOVED OR ALTERED: None COMPLICATIONS: None ESTIMATED BLOOD LOSS: Scant INTRAOPERATIVE FINDINGS: See below PROCEDURE: Obtaining informed consent the patient was taken from the preoperative holding area to the main endoscopy suite where monitoring devices were attached to the patient. Plan and surgical timeout were conducted The patient was placed in the left lateral decubitus position with knees to chest. A perianal examination was performed. There was no visible or palpable anorectal pathology. Sphincter tone was felt to be normal. The flexible adult colonoscope was advanced through the anal rectal canal, all the way to the cecum. Visualization of the cecum was achieved by demonstration of the ileocecal valve. Photo taken This was a fair study on an incompletely prepped bowel. There was a significant amount of liquid dark green stool which required aspiration irrigation and aspiration again. Approximately 15 to 20 minutes of the procedure was involved with aspiration. The colonoscope was withdrawn slowly and methodically checked and the mucosa carefully. There was no evidence of tumor, stricture, bleeding or polyp. There was no evidence of diverticuloses. The scope was slowly withdrawn through the anal rectal canal. Complete visualization of the rectum was achieved with photodocumentation. Again the study was somewhat limited due to the copious amounts of liquid green stool; the majority of the colon wall was visualized however. The scope was withdrawn to the patient's anus. The patient tolerated the procedure well and was taken to the recovery area in stable condition. Per surveillance guidelines, patient will be an appropriate candidate for follow-up colonoscopy in [5] years.
[2020-03-17 09:24] VITALS: BP 134/57
== END 2020-03-17 09:20 | disposition home or self-care (01) ==
LOC: END 07:00
PROVIDERS: ATTEND Surgery
DX: Z12.11 Encounter for screening for malignant neoplasm of colon (principal); Z86.010 Personal history of colon polyps; N81.6 Rectocele; E66.9 Obesity, unspecified; J45.909 Unspecified asthma, uncomplicated; E03.9 Hypothyroidism, unspecified; Z03.818 Encounter for observation for suspected exposure to other biological agents ruled out; Z79.899 Other long term (current) drug therapy; Z98.890 Other specified postprocedural states; Z90.49 Acquired absence of other specified parts of digestive tract
CPT/HCPCS: 45378; 36415; 85027; U0003; J2704; J3490; C9803; 812; 87635

== ENCOUNTER → 2020-04-07 | Outpatient (CLI) | payer MEDICARE, OTHER ==
[2020-04-07 08:25] LABS: ABSOLUTE EOSINOPHILS # (AUTO) 0.1 10^3/uL (0.0-0.6); ABSOLUTE LYMPHOCYTES (AUTO) 1.3 10^3/uL (0.5-4.7); ABSOLUTE MONOCYTES (AUTO) 0.4 10^3/uL (0.1-1.4); ABSOLUTE NEUT (AUTO) 2.4 10^3/uL (1.7-8.2); BASOPHILS % (AUTO) 1.1 % (0-2); EOSINOPHILS % (AUTO) 2.1 % (0-6); HEMATOCRIT 33.3 % (36.0-47.0); HEMOGLOBIN 11.3 g/dL (12.0-15.5); LYMPHOCYTES % (AUTO) 30.3 % (13-45); MEAN CORPUSCULAR HEMOGLOBIN 32.1 pg (27.0-33.4); MEAN CORPUSCULAR HGB CONC 33.9 g/dL (32.0-36.0); MEAN CORPUSCULAR VOLUME 95 fl (80-97); MONOCYTES % (AUTO) 10.3 % (3-13); PLATELET COUNT 213 10^3/uL (150-450); RED BLOOD COUNT 3.52 10^6/uL (3.72-5.28); RED CELL DISTRIBUTION WIDTH 14.3 % (11.5-14.0); SEGMENTED NEUTROPHILS % (AUTO) 56.2 % (42-78); TOTAL CELLS COUNTED % (AUTO) 100 %; WHITE BLOOD COUNT 4.2 10^3/uL (4.0-10.5)
[2020-04-07 08:58] LABS: ALKALINE PHOSPHATASE 86 U/L (38-126); ANION GAP 8 (5-19); ASPARTATE AMINO TRANSFERASE 25 U/L (14-36); BILIRUBIN,DIRECT 0.1 mg/dL (0.0-0.4); BILIRUBIN,TOTAL 0.3 mg/dL (0.2-1.3); BLOOD UREA NITROGEN 21 mg/dL (7-20); CALCIUM 9.5 mg/dL (8.4-10.2); CARBON DIOXIDE 26 mmol/L (22-30); CHLORIDE 109 mmol/L (98-107); CHOLESTEROL 184.93 mg/dL (0-200); GLUCOSE 82 mg/dL (75-110); POTASSIUM 4.1 mmol/L (3.6-5.0); TOTAL PROTEIN 6.7 g/dL (6.3-8.2); TRIGLYCERIDES 97 mg/dL (<150)
[2020-04-07 09:09] LABS: DIRECT LDL 71 mg/dL (<100)
== END ==
LOC: OD 07:20
PROVIDERS: ATTEND Family Medicine Geriatric Medicine
DX: I10 Essential (primary) hypertension (principal); E03.9 Hypothyroidism, unspecified; E78.5 Hyperlipidemia, unspecified; D64.9 Anemia, unspecified; Z79.899 Other long term (current) drug therapy
CPT/HCPCS: 36415; 80053; 80061; 84443; 85025